=== PATIENT | female | born 1985 | race Caucasian/White ===

== ENCOUNTER 2019-09-12 15:05 | Inpatient (IN) | payer OTHER ==
[2019-09-12] MEDS ORDERED: Sodium Chloride 0.9% 1,000 ML IV ONE ×3 (15:13→21:22)
[2019-09-12] MEDS ORDERED: Sodium Chloride 0.9% 2.5 ML Syringe FLUSH PRN (15:13)
[2019-09-12] MEDS ORDERED: Sodium Chloride 0.9% 10 ML Syringe FLUSH PRN (15:13)
--- NOTE | 2019-09-12 15:25 | EDM.PDOC ---
ED HPI GENERAL MEDICAL PROBLEM - General Chief Complaint: General Stated Complaint: CHEST PAIN Time Seen by Provider: 09/12/19 13:51 - History of Present Illness INITIAL COMMENTS - FREE TEXT/NARRATIVE: History of present illness: 33-year-old female presenting with chest pain and difficulty breathing for the last week, worsening today to the point that she feels she cannot catch her breath. Mild dry cough associated. No fevers. She does report that she has been feeling weak lately and has had very frequent falls including struck her head and had loss of consciousness earlier today. She does have bruising on her arms and legs. I asked the patient specifically about personal safety, if she feels safe at home and if she has been harmed or abused by anyone and she says no. She does report that over the last 2 to 3 months she has lost about 50 to 60 pounds without trying. Does not report any decreased appetite but does report that she just has not felt very well. She does report that recently she has had increased thirst and increased urine output, sometimes drinking 3 gallons of water a day. Review of systems: As per history of present illness and below otherwise all systems reviewed and negative. Past medical history: As per history of present illness and as reviewed below otherwise noncontributory. Had gestational diabetes with 1 of her 2 children Surgical history: As per history of present illness and as reviewed below otherwise noncontributory. Social history: No reported history of drug or alcohol abuse. Tobacco, recently quit. Family history: As per history of present illness and as reviewed below otherwise noncontributory. No known family history of cancer or PE/DVT. No known young cardiac issues either. Physical exam: GEN: no acute distress, well appearing HEENT: Atraumatic, normocephalic, mucous membranes moist Neck: supple, nontender, trachea midline. Lungs: No respiratory distress. Tachypneic Heart: Tachycardic Abdomen: Soft, nondistended, nontender. Back: nontender Extremities: Atraumatic. Neurovascularly intact. Full range of motion of all extremities. Bruises throughout though no bony tenderness. Neuro: Awake, alert, oriented. Neuro Exam nonfocal. Skin: warm, dry, appears pale, somewhat mottled, bruises over extremities. Diagnostics: CT head and neck, CTA chest, CT abdomen/pelvis with contrast Therapeutics: IV fluids MDM: Impression: Plan: Definitive disposition and diagnosis as appropriate pending reevaluation and review of above. Headache Pain Score (Numeric/FACES): 4 - Related Data Allergies Allergy/AdvReac Type Severity Reaction Status Date / Time adhesive Allergy Other Verified 09/12/19 16:31 Home Meds: Home Meds . [No Known Home Meds] 04/15/19 [History] Past Medical History - Past Health History Medical/Surgical History: Denies Medical/Surgical History [employer]IAN History: Reports: , Spontaneous Musculoskeletal History: Reports: RA Endocrine/Metabolic History: Reports: Diabetes, Gestational - Past Surgical History Female Surgical History: Reports: Breast Implant, D&C Social & Family History - Family History Family Medical History: Noncontributory ED ROS GENERAL - Review of Systems Review Of Systems: See Below (See HPI) ED EXAM, GENERAL - Physical Exam Exam: See Below (See HPI) EKG INTERPRETATION EKG Interpretation Comments: Initial EKG which was performed at 3:10 PM was sinus tachycardia with very wavy baseline and significant artifact. Therefore repeat EKG was performed with changed clips. The repeat EKG shows sinus tachycardia, rate 103, left atrial enlargement, left axis deviation borderline inferior T inversions, no STEMI. No QT prolongation. Course - Vital Signs Text/Narrative:: Tachycardic, dyspneic, chest pain. No recent fevers. Significant weight loss. Increased p.o. fluid intake and urine output. No sick contacts. States primarily at home with her children who do not attend school or daycare. Has been having food dropped off at home and has not gone out in public over the last few months. No known past medical history other than gestational diabetes. Not hypoxic on arrival here but tachycardic in the 120s. Several episodes of head injury after falling in the last few days to 1 week. Fingerstick 300. Differential diagnosis includes new onset diabetes with DKA, pulmonary embolism versus dissection, ACS, pneumonia, coronavirus, cancer, leukemia or lymphoma We will check CT head and neck due to the patient's trauma with loss of consciousness. Will check CT angios chest to evaluate for pulmonary embolism versus dissection. Will check CT abdomen/pelvis to evaluate for acute intra- abdominal pathology, mass, infection, etc. EKG sinus tachycardia with slightly prolonged QT interval however poor/wavy baseline and on repeat EKG QT interval is not prolonged. No acute ischemia or STEMI. Troponin negative. Hyperglycemic in the 300s, fasting, with an anion gap of 25 and a pH of 7.09, as well as serum and urine ketones. Concern for new onset diabetes with DKA. Will start insulin drip as well as D5 with potassium supplementation. Patient's potassium is low. Potassium repleted, bicarb also given. CT brain/C-spine with no acute findings. CT angio chest shows no pulmonary embolism or dissection, no pneumonia. CT abdomen/pelvis shows L3 anterior superior vertebral body chip fracture, no other acute intra-abdominal or traumatic pathology. Case was discussed with orthopedics and neurosurgery at [facility] in regards to the need for potential transfer, they recommend no transfer needed at this time this is a nonoperative and stable fracture does not need emergent orthopedic or neurosurgical intervention. Patient will be admitted here. Last Recorded V/S: Last Vital Signs Temp 98.7 F 09/13/19 04:00 Pulse 108 H 09/12/19 19:22 Resp 18 09/13/19 06:00 BP 106/60 09/13/19 06:00 Pulse Ox 97 09/13/19 06:00 - Orders/Labs/Meds Orders: Active Orders 24 hr Category Date Time Status CULTURE BLOOD [BC] Stat Lab 09/12/19 15:41 Received CULTURE BLOOD [BC] Stat Lab 09/12/19 16:34 Results PROCALCITONIN [REF] Stat Lab 09/12/19 15:10 Received Insulin Regular, Human [NovoLIN R] Med 09/12/19 16:30 Active 7 unit SUBCUT ASDIRECTED Sodium Chloride 0.9% [Saline Flush] Med 09/12/19 15:13 Active 10 ml FLUSH ASDIRECTED PRN Sodium Chloride 0.9% [Saline Flush] Med 09/12/19 15:13 Active 2.5 ml FLUSH ASDIRECTED PRN Blood Culture x2 Reflex Set [OM.PC] Stat Oth 09/12/19 15:14 Ordered Saline Lock Insert [OM.PC] Stat Oth 09/12/19 15:14 Ordered Medication Orders Acetaminophen (Tylenol) 650 mg PO Q6H PRN PRN Reason: fever, pain, headache Last Admin: 09/13/19 04:30 Dose: 650 mg Documented by: APOLEVA Famotidine (Pepcid) 20 mg IVPUSH DAILY RALPH Insulin Human Regular 100 unit (/ Sodium Chloride) 100 mls @ 3 mls/hr IV TITRATE RALPH; Protocol Last Titration: 09/13/19 06:10 Dose: 3 unit/hr, 3 mls/hr Documented by: ELIU Cosigned by: MIRANDA Titration: 09/13/19 04:58 Dose: 2 unit/hr, 2 mls/hr Documented by: ELIU Cosigned by: MIRANDA Titration: 09/13/19 03:12 Dose: 2.5 unit/hr, 2.5 mls/hr Documented by: ELIU Cosigned by: MIRANDA Admin: 09/13/19 02:05 Dose: 1.5 unit/hr, 1.5 mls/hr Documented by: ELIU Cosigned by: MIRANDA Potassium Chloride/Dextrose/Sod Cl (D5 1/2 Ns W/ 40 Meq/L Kcl) 1,000 mls @ 150 mls/hr IV ASDIRECTED RALPH Last Admin: 09/13/19 05:01 Dose: 150 mls/hr Documented by: ELIU Insulin Human Regular (Novolin R) 7 unit SUBCUT ASDIRECTED RALPH; Protocol Last Admin: 09/12/19 18:15 Dose: Not Given Documented by: LALA Ondansetron HCl (Zofran) 4 mg IVPUSH Q4H PRN PRN Reason: Nausea Sodium Chloride (Saline Flush) 10 ml FLUSH ASDIRECTED PRN PRN Reason: Keep Vein Open Sodium Chloride (Saline Flush) 2.5 ml FLUSH ASDIRECTED PRN PRN Reason: Keep Vein Open Labs: Laboratory Tests 09/12/19 09/12/19 09/12/19 Range/Units 15:10 15:10 15:10 WBC 9.53 (4.0-11.0) K/uL RBC 5.06 (4.30-5.90) M/uL Hgb 16.7 H (12.0-16.0) g/dL Hct 46.7 H (36.0-46.0) % MCV 92.3 (80.0-98.0) fL MCH 33.0 H (27.0-32.0) pg MCHC 35.8 (31.0-37.0) g/dL RDW Std Deviation 48.2 (28.0-62.0) fl RDW Coeff of Cecilia 15 (11.0-15.0) % Plt Count 215 (150-400) K/uL MPV 10.80 (7.40-12.00) fL Neut % (Auto) 75.7 (48.0-80.0) % Lymph % (Auto) 14.9 L (16.0-40.0) % [place] % (Auto) 8.8 (0.0-15.0) % Eos % (Auto) 0.4 (0.0-7.0) % Baso % (Auto) 0.2 (0.0-1.5) % Neut # (Auto) 7.2 H (1.4-5.7) K/uL Lymph # (Auto) 1.4 (0.6-2.4) K/uL [place] # (Auto) 0.8 (0.0-0.8) K/uL Eos # (Auto) 0.0 (0.0-0.7) K/uL Baso # (Auto) 0.0 (0.0-0.1) K/uL Nucleated RBC % 0.0 /100WBC Nucleated RBCs # 0 K/uL INR ABG pH (7.35-7.45) ABG pCO2 (35-45) mmHG ABG pO2 (75-100) mmHG ABG HCO3 (22-26) mEq/L ABG Total CO2 ABG Base Excess (-2.0-2.0) Sodium 132 L (136-145) mmol/L Potassium 3.1 L (3.5-5.1) mmol/L Chloride 98 (98-107) mmol/L Carbon Dioxide 8.7 L (21.0-32.0) mmol/L BUN 7 (7.0-18.0) mg/dL Creatinine 0.8 (0.6-1.0) mg/dL Est Cr Clr Drug Dosing TNP Estimated GFR (MDRD) > 60.0 ml/min Glucose 315 H (74-106) mg/dL POC Glucose (60-110) mg/dL Calcium 8.5 (8.5-10.1) mg/dL Phosphorus 2.1 L (2.6-4.7) mg/dL Magnesium 2.0 (1.8-2.4) mg/dL Total Bilirubin 0.5 (0.2-1.0) mg/dL AST 15 (15-37) IU/L ALT 26 (14-63) IU/L Alkaline Phosphatase 185 H (46-116) U/L Troponin I < 0.050 (0.000-0.056) ng/mL Total Protein 8.9 H (6.4-8.2) g/dL Albumin 4.2 (3.4-5.0) g/dL Globulin 4.7 H (2.6-4.0) g/dL Albumin/Globulin Ratio 0.9 (0.9-1.6) TSH 3rd Generation 1.25 (0.36-3.74) uIU/mL HCG, Qual NEGATIVE (NEG) Urine Color Urine Appearance Urine pH (5.0-8.0) Ur Specific [place] (1.001-1.035) Urine Protein (NEGATIVE) mg/dL Urine Glucose (UA) (NEGATIVE) mg/dL Urine Ketones (NEGATIVE) mg/dL Urine Occult Blood (NEGATIVE) Urine Nitrite (NEGATIVE) Urine Bilirubin (NEGATIVE) Urine Urobilinogen (<2.0) EU/dL Ur Leukocyte Esterase (NEGATIVE) Urine RBC (0-2/HPF) Urine WBC (0-5/HPF) Ur Epithelial Cells (NONE-FEW) Amorphous Sediment (NEGATIVE) Urine Bacteria (NEGATIVE) Urine Mucus (NONE-MOD) Ketones (NEG) SARS Virus RNA (PCR) (NEGATIVE) 09/12/19 09/12/19 09/12/19 Range/Units 15:10 15:15 15:23 WBC (4.0-11.0) K/uL RBC (4.30-5.90) M/uL Hgb (12.0-16.0) g/dL Hct (36.0-46.0) % MCV (80.0-98.0) fL MCH (27.0-32.0) pg MCHC (31.0-37.0) g/dL RDW Std Deviation (28.0-62.0) fl RDW Coeff of Cecilia (11.0-15.0) % Plt Count (150-400) K/uL MPV (7.40-12.00) fL Neut % (Auto) (48.0-80.0) % Lymph % (Auto) (16.0-40.0) % [place] % (Auto) (0.0-15.0) % Eos % (Auto) (0.0-7.0) % Baso % (Auto) (0.0-1.5) % Neut # (Auto) (1.4-5.7) K/uL Lymph # (Auto) (0.6-2.4) K/uL [place] # (Auto) (0.0-0.8) K/uL Eos # (Auto) (0.0-0.7) K/uL Baso # (Auto) (0.0-0.1) K/uL Nucleated RBC % /100WBC Nucleated RBCs # K/uL INR ABG pH 7.097 L* (7.35-7.45) ABG pCO2 9 L (35-45) mmHG ABG pO2 158 H (75-100) mmHG ABG HCO3 3 L (22-26) mEq/L ABG Total CO2 2.6 ABG Base Excess -24.3 L (-2.0-2.0) Sodium (136-145) mmol/L Potassium (3.5-5.1) mmol/L Chloride (98-107) mmol/L Carbon Dioxide (21.0-32.0) mmol/L BUN (7.0-18.0) mg/dL Creatinine (0.6-1.0) mg/dL Est Cr Clr Drug Dosing Estimated GFR (MDRD) ml/min Glucose (74-106) mg/dL POC Glucose 318 H (60-110) mg/dL Calcium (8.5-10.1) mg/dL Phosphorus (2.6-4.7) mg/dL Magnesium (1.8-2.4) mg/dL Total Bilirubin (0.2-1.0) mg/dL AST (15-37) IU/L ALT (14-63) IU/L Alkaline Phosphatase (46-116) U/L Troponin I (0.000-0.056) ng/mL Total Protein (6.4-8.2) g/dL Albumin (3.4-5.0) g/dL Globulin (2.6-4.0) g/dL Albumin/Globulin Ratio (0.9-1.6) TSH 3rd Generation (0.36-3.74) uIU/mL HCG, Qual (NEG) Urine Color Urine Appearance Urine pH (5.0-8.0) Ur Specific [place] (1.001-1.035) Urine Protein (NEGATIVE) mg/dL Urine Glucose (UA) (NEGATIVE) mg/dL Urine Ketones (NEGATIVE) mg/dL Urine Occult Blood (NEGATIVE) Urine Nitrite (NEGATIVE) Urine Bilirubin (NEGATIVE) Urine Urobilinogen (<2.0) EU/dL Ur Leukocyte Esterase (NEGATIVE) Urine RBC (0-2/HPF) Urine WBC (0-5/HPF) Ur Epithelial Cells (NONE-FEW) Amorphous Sediment (NEGATIVE) Urine Bacteria (NEGATIVE) Urine Mucus (NONE-MOD) Ketones SMALL H (NEG) SARS Virus RNA (PCR) (NEGATIVE) 09/12/19 09/12/19 09/12/19 Range/Units 15:41 15:55 17:44 WBC (4.0-11.0) K/uL RBC (4.30-5.90) M/uL Hgb (12.0-16.0) g/dL Hct (36.0-46.0) % MCV (80.0-98.0) fL MCH (27.0-32.0) pg MCHC (31.0-37.0) g/dL RDW Std Deviation (28.0-62.0) fl RDW Coeff of Cecilia (11.0-15.0) % Plt Count (150-400) K/uL MPV (7.40-12.00) fL Neut % (Auto) (48.0-80.0) % Lymph % (Auto) (16.0-40.0) % [place] % (Auto) (0.0-15.0) % Eos % (Auto) (0.0-7.0) % Baso % (Auto) (0.0-1.5) % Neut # (Auto) (1.4-5.7) K/uL Lymph # (Auto) (0.6-2.4) K/uL [place] # (Auto) (0.0-0.8) K/uL Eos # (Auto) (0.0-0.7) K/uL Baso # (Auto) (0.0-0.1) K/uL Nucleated RBC % /100WBC Nucleated RBCs # K/uL INR 0.97 ABG pH (7.35-7.45) ABG pCO2 (35-45) mmHG ABG pO2 (75-100) mmHG ABG HCO3 (22-26) mEq/L ABG Total CO2 ABG Base Excess (-2.0-2.0) Sodium (136-145) mmol/L Potassium (3.5-5.1) mmol/L Chloride (98-107) mmol/L Carbon Dioxide (21.0-32.0) mmol/L BUN (7.0-18.0) mg/dL Creatinine (0.6-1.0) mg/dL Est Cr Clr Drug Dosing Estimated GFR (MDRD) ml/min Glucose (74-106) mg/dL POC Glucose 219 H (60-110) mg/dL Calcium (8.5-10.1) mg/dL Phosphorus (2.6-4.7) mg/dL Magnesium (1.8-2.4) mg/dL Total Bilirubin (0.2-1.0) mg/dL AST (15-37) IU/L ALT (14-63) IU/L Alkaline Phosphatase (46-116) U/L Troponin I (0.000-0.056) ng/mL Total Protein (6.4-8.2) g/dL Albumin (3.4-5.0) g/dL Globulin (2.6-4.0) g/dL Albumin/Globulin Ratio (0.9-1.6) TSH 3rd Generation (0.36-3.74) uIU/mL HCG, Qual (NEG) Urine Color YELLOW Urine Appearance CLEAR Urine pH 5.5 (5.0-8.0) Ur Specific [place] >= 1.030 (1.001-1.035) Urine Protein 30 H (NEGATIVE) mg/dL Urine Glucose (UA) 500 H (NEGATIVE) mg/dL Urine Ketones >=80 (NEGATIVE) mg/dL Urine Occult Blood SMALL H (NEGATIVE) Urine Nitrite NEGATIVE (NEGATIVE) Urine Bilirubin NEGATIVE (NEGATIVE) Urine Urobilinogen 0.2 (<2.0) EU/dL Ur Leukocyte Esterase NEGATIVE (NEGATIVE) Urine RBC 2-3 (0-2/HPF) Urine WBC 0-1 (0-5/HPF) Ur Epithelial Cells FEW (NONE-FEW) Amorphous Sediment FEW (NEGATIVE) Urine Bacteria FEW (NEGATIVE) Urine Mucus FEW (NONE-MOD) Ketones (NEG) SARS Virus RNA (PCR) (NEGATIVE) 09/12/19 Range/Units 18:05 WBC (4.0-11.0) K/uL RBC (4.30-5.90) M/uL Hgb (12.0-16.0) g/dL Hct (36.0-46.0) % MCV (80.0-98.0) fL MCH (27.0-32.0) pg MCHC (31.0-37.0) g/dL RDW Std Deviation (28.0-62.0) fl RDW Coeff of Cecilia (11.0-15.0) % Plt Count (150-400) K/uL MPV (7.40-12.00) fL Neut % (Auto) (48.0-80.0) % Lymph % (Auto) (16.0-40.0) % [place] % (Auto) (0.0-15.0) % Eos % (Auto) (0.0-7.0) % Baso % (Auto) (0.0-1.5) % Neut # (Auto) (1.4-5.7) K/uL Lymph # (Auto) (0.6-2.4) K/uL [place] # (Auto) (0.0-0.8) K/uL Eos # (Auto) (0.0-0.7) K/uL Baso # (Auto) (0.0-0.1) K/uL Nucleated RBC % /100WBC Nucleated RBCs # K/uL INR ABG pH (7.35-7.45) ABG pCO2 (35-45) mmHG ABG pO2 (75-100) mmHG ABG HCO3 (22-26) mEq/L ABG Total CO2 ABG Base Excess (-2.0-2.0) Sodium (136-145) mmol/L Potassium (3.5-5.1) mmol/L Chloride (98-107) mmol/L Carbon Dioxide (21.0-32.0) mmol/L BUN (7.0-18.0) mg/dL Creatinine (0.6-1.0) mg/dL Est Cr Clr Drug Dosing Estimated GFR (MDRD) ml/min Glucose (74-106) mg/dL POC Glucose (60-110) mg/dL Calcium (8.5-10.1) mg/dL Phosphorus (2.6-4.7) mg/dL Magnesium (1.8-2.4) mg/dL Total Bilirubin (0.2-1.0) mg/dL AST (15-37) IU/L ALT (14-63) IU/L Alkaline Phosphatase (46-116) U/L Troponin I (0.000-0.056) ng/mL Total Protein (6.4-8.2) g/dL Albumin (3.4-5.0) g/dL Globulin (2.6-4.0) g/dL Albumin/Globulin Ratio (0.9-1.6) TSH 3rd Generation (0.36-3.74) uIU/mL HCG, Qual (NEG) Urine Color Urine Appearance Urine pH (5.0-8.0) Ur Specific [place] (1.001-1.035) Urine Protein (NEGATIVE) mg/dL Urine Glucose (UA) (NEGATIVE) mg/dL Urine Ketones (NEGATIVE) mg/dL Urine Occult Blood (NEGATIVE) Urine Nitrite (NEGATIVE) Urine Bilirubin (NEGATIVE) Urine Urobilinogen (<2.0) EU/dL Ur Leukocyte Esterase (NEGATIVE) Urine RBC (0-2/HPF) Urine WBC (0-5/HPF) Ur Epithelial Cells (NONE-FEW) Amorphous Sediment (NEGATIVE) Urine Bacteria (NEGATIVE) Urine Mucus (NONE-MOD) Ketones (NEG) SARS Virus RNA (PCR) NEGATIVE (NEGATIVE) Meds: Medications Generic Name Dose Route Start Last Admin Trade Name Freq PRN Reason Stop Dose Admin Acetaminophen 650 mg 09/13/19 04:19 09/13/19 04:30 Tylenol PO 650 mg Q6H PRN Administration fever, pain, headache Famotidine 20 mg 09/13/19 09:00 Pepcid IVPUSH DAILY RALPH Insulin Human Regular 100 unit 100 mls @ 3 mls/hr 09/13/19 02:00 09/13/19 06:10 / Sodium Chloride IV 3 unit/hr TITRATE RALPH 3 mls/hr Titration Protocol 3 UNIT/HR Potassium Chloride/Dextrose/Sod Cl 1,000 mls @ 150 mls/hr 09/13/19 02:13 09/13/19 05:01 D5 1/2 Ns W/ 40 Meq/L Kcl IV 150 mls/hr ASDIRECTED RALPH Administration Insulin Human Regular 7 unit 09/12/19 16:30 09/12/19 18:15 Novolin R SUBCUT Not Given ASDIRECTED RALPH Protocol Ondansetron HCl 4 mg 09/12/19 22:34 Zofran IVPUSH Q4H PRN Nausea Sodium Chloride 10 ml 09/12/19 15:13 Saline Flush FLUSH ASDIRECTED PRN Keep Vein Open Sodium Chloride 2.5 ml 09/12/19 15:13 Saline Flush FLUSH ASDIRECTED PRN Keep Vein Open Discontinued Medications Generic Name Dose Route Start Last Admin Trade Name Freq PRN Reason Stop Dose Admin Sodium Chloride 1,000 mls @ 999 mls/hr 09/12/19 15:13 09/12/19 15:54 Normal Saline IV 09/12/19 16:13 999 mls/hr .Bolus ONE Administration Insulin Human Regular 100 unit 100 mls @ 7 mls/hr 09/12/19 16:30 09/12/19 21:09 / Sodium Chloride IV 1.5 unit/hr TITRATE RALPH 1.5 mls/hr Titration Protocol 7 UNIT/HR Potassium Chloride 40 meq/ 100 mls @ 25 mls/hr 09/12/19 16:29 09/12/19 16:46 Premix IV 09/12/19 20:28 25 mls/hr ONETIME ONE Administration Sodium Chloride 1,000 mls @ 125 mls/hr 09/12/19 17:00 09/12/19 16:53 Normal Saline IV 125 mls/hr ASDIRECTED RALPH Administration Potassium Chloride/Dextrose/Sod Cl 1,000 mls @ 125 mls/hr 09/12/19 17:30 09/13/19 02:09 D5 1/2 Ns W/ 40 Meq/L Kcl IV 150 mls/hr ASDIRECTED RALPH Infusion Sodium Chloride 1,000 mls @ 999 mls/hr 09/12/19 19:00 09/12/19 19:19 Normal Saline IV 09/12/19 20:00 999 mls/hr .Bolus ONE Administration Sodium Chloride 1,000 mls @ 999 mls/hr 09/12/19 21:22 09/12/19 21:24 Normal Saline IV 09/12/19 22:22 Not Given ONETIME ONE Potassium Chloride/Sodium Chloride 1,000 mls @ 200 mls/hr 09/12/19 22:45 09/13/19 02:09 Normal Saline With 40 Meq Kcl IV 09/13/19 03:44 0 mls/hr ASDIRECTED RALPH Infusion Iopamidol 100 ml 09/12/19 16:45 09/12/19 16:45 Isovue Multipack-370 (76%) IVPUSH 09/12/19 16:46 100 ml ONETIME STA Administration Ondansetron HCl 4 mg 09/12/19 19:07 09/12/19 19:16 Zofran IVPUSH 09/12/19 19:08 4 mg ONETIME ONE Administration Ondansetron HCl Confirm 09/12/19 19:08 09/12/19 19:20 Zofran Administered 09/12/19 19:09 Not Given Dose 4 mg .ROUTE .STK-MED ONE Potassium Chloride 40 meq 09/12/19 22:32 09/12/19 22:43 Klor-Con M20 PO 09/12/19 22:33 40 meq ONETIME ONE Administration Sodium Bicarbonate 5 meq 09/12/19 17:30 09/12/19 17:37 Sodium Bicarbonate 4.2% IVPUSH 09/12/19 17:31 5 meq ONETIME ONE Administration - Re-Assessments/Exams Free Text/Narrative Re-Assessment/Exam: 09/12/19 15:33 On reassessment, the patient is feeling slightly better. Her heart rate is improved from the 120s when she arrived to 103 now. 09/12/19 17:50 18 results discussed with the patient. Her heart rate is now in the 90s. She reports she is feeling much better. Repeat glucose was in the 200s. Discussed negative CT brain/C-spine/chest but CT abdomen/pelvis showing L3 fracture. She does report that she fell about 6 days ago 1 of the times where she felt dizzy and weak and did strike her back and has been having back pain since then. Therefore I suspect the L3 anterior superior vertebral body chip fracture is an acute fracture. Will discuss this with the orthopedic surgeon on-call at [facility] 09/12/19 18:09 Case discussed with orthopedic surgeon, Dr. Anderson at [facility], he reports he does not do spine therefore recommend to speak to neurosurgery. 09/12/19 18:[address] Toro, the neurosurgeon on-call at [facility], L3 fracture was discussed. He recommends no need for transfer at this time or any other surgical intervention or follow-up care. The patient can be admitted here. 09/12/19 18:19 Dr. Erwin called back and agrees with plan and accepts admission. Requests to admit to the ICU, inpatient, telemetry Departure - Departure Time of Disposition: 18:22 Disposition: Admitted As Inpatient 67 Clinical Impression: Ketoacidosis in diabetes mellitus, Diabetes mellitus, new onset DKA (diabetic ketoacidoses) Qualifiers: Diabetes mellitus complication detail: without coma Closed L3 vertebral fracture Qualifiers: Encounter type: initial encounter Fracture morphology: other fracture Qualified Code(s): S32.038A - Other fracture of third lumbar vertebra, initial encounter for closed fracture - Discharge Information Critical Care Note - Critical Care Note Total Time (mins): 35 Comments: managing acute DKA/dyspnea/distress - My Orders Last 24 Hours: My Active Orders 09/12/19 15:10 PROCALCITONIN [REF] Stat 09/12/19 15:13 Sodium Chloride 0.9% [Saline Flush] 10 ml FLUSH ASDIRECTED PRN Sodium Chloride 0.9% [Saline Flush] 2.5 ml FLUSH ASDIRECTED PRN 09/12/19 15:14 Blood Culture x2 Reflex Set [OM.PC] Stat Saline Lock Insert [OM.PC] Stat 09/12/19 15:41 CULTURE BLOOD [BC] Stat 09/12/19 16:30 Insulin Regular, Human [NovoLIN R] 7 unit SUBCUT ASDIRECTED 09/12/19 16:34 CULTURE BLOOD [BC] Stat - Assessment/Plan Last 24 Hours: My Active Orders 09/12/19 15:10 PROCALCITONIN [REF] Stat 09/12/19 15:13 Sodium Chloride 0.9% [Saline Flush] 10 ml FLUSH ASDIRECTED PRN Sodium Chloride 0.9% [Saline Flush] 2.5 ml FLUSH ASDIRECTED PRN 09/12/19 15:14 Blood Culture x2 Reflex Set [OM.PC] Stat Saline Lock Insert [OM.PC] Stat 09/12/19 15:41 CULTURE BLOOD [BC] Stat 09/12/19 16:30 Insulin Regular, Human [NovoLIN R] 7 unit SUBCUT ASDIRECTED 09/12/19 16:34 CULTURE BLOOD [BC] Stat
[2019-09-12 15:52] LABS: BLOOD UREA NITROGEN,BUN 7 mg/dL (7.0-18.0); CARBON DIOXIDE,CO2 8.7 mmol/L (21.0-32.0); CHLORIDE,CL 98 mmol/L (98-107); GLUCOSE RANDOM 315 mg/dL (74-106); POTASSIUM,K 3.1 mmol/L (3.5-5.1); SODIUM,NA 132 mmol/L (136-145)
[2019-09-12] MEDS ORDERED: Potassium Chloride Riders 40 MEQ in Premix Bag 1 BAG IV ONE (16:29)
[2019-09-12] MEDS ORDERED: Insulin Regular, Human 100 Units/ML 10 ML Vial SUBCUT SCH (16:30)
[2019-09-12] MEDS ORDERED: Iopamidol 755 MG/ML 500 ML Multipack Bottle IVPUSH STA (16:45)
[2019-09-12] MEDS ORDERED: Sodium Chloride 0.9% 1,000 ML IV SCH (17:00)
--- NOTE | 2019-09-12 17:01 | CT ---
CT chest Technique: Multiple axial sections through the chest were obtained. Intravenous contrast was utilized. Study performed as a pulmonary angiogram protocol. Findings: Pulmonary arteries are well opacified. No filling defects are seen to indicate pulmonary embolism. No pericardial thickening is seen. Mediastinum and hilar region show no adenopathy. Bilateral breast prosthesis are noted. No axillary adenopathy is seen. Aorta shows no aneurysm or dissection Lung window settings were reviewed. No acute parenchymal change is seen. No pleural effusions are noted. No pneumothorax is appreciated. Bone window settings were reviewed. Old healed 7th right rib fracture is noted. No acute osseous finding is appreciated. Minimal degenerative change is seen within the spine. Impression: 1. No findings of pulmonary embolism. 2. Other findings believed to be nonacute and incidental as described above. Diagnostic code #2 This report was dictated in MDT
--- NOTE | 2019-09-12 17:04 | CT ---
CT cervical spine Technique: Multiple axial sections were obtained from above C1 inferiorly to the bottom of T1. Reconstructed coronal and sagittal images were obtained. Comparison: Prior cervical spine CT exam of 04/22/19 is available. Findings: Vertebral body heights and disc spaces are maintained. Vertebral bodies and posterior arches are intact. No fracture is appreciated. No bony central or bony neural foraminal stenosis is seen. No abnormal subluxation is seen. Impression: 1. Nothing acute is appreciated on CT study of the cervical spine. 2. No significant change from previous CT cervical spine study is seen. Diagnostic code #1 This report was dictated in MDT
--- NOTE | 2019-09-12 17:04 | CT ---
Head CT Technique: Multiple axial sections through the brain were obtained. Intravenous contrast was not utilized. No prior intracranial imaging is available. Findings: Ventricles along with basal cisterns and sulci over the convexities are within normal limits for the patient's age. No abnormal parenchymal densities are seen. No evidence of intracranial hemorrhage. No midline shift or mass-effect is appreciated. Bone window settings were reviewed. Visualized paranasal sinuses show nothing acute. Visualized mastoid sinuses show nothing acute. No acute calvarial finding is seen. Impression: 1. Nothing acute is appreciated on noncontrast head CT study. Diagnostic code #1 This report was dictated in MDT
--- NOTE | 2019-09-12 17:18 | CT ---
CT abdomen and pelvis Technique: Multiple axial sections were obtained from the top of the liver inferiorly through the pubic symphysis. Intravenous contrast was utilized. No oral contrast has been given. Comparison: No prior abdominal imaging is available. Findings: Visualized lung bases show nothing acute. Liver contains no focal parenchymal abnormality. Spleen appears within normal limits. Adrenal glands contain no nodule. Pancreas is within normal limits. Kidneys show symmetric contrast enhancement without hydronephrosis or mass. Gallbladder contains no calcified gallstones. Aorta shows no aneurysm. No retroperitoneal adenopathy or mesenteric abnormalities. Appendix is seen which is normal. No pelvic mass or adenopathy is seen. No free fluid or inflammatory change is appreciated. Bone window settings were reviewed which shows a small chip fracture off the anterior and superior superior L3 vertebral body no additional fracture is appreciated within the visualized osseous structures. Impression: 1. Small chip fracture off the anterior and superior vertebral body of L3. Please correlate if patient is symptomatic to the lumbar spine for this to be acute. 2. No other acute finding is seen on CT study of the abdomen and pelvis. Diagnostic code #3 This report was dictated in MDT
[2019-09-12] MEDS ORDERED: D5 1/2 NS w/ 40 mEq/L KCl 1,000 ML IV SCH (17:30)
[2019-09-12] MEDS ORDERED: Ondansetron 4 MG/2 ML SDV IVPUSH ONE (19:07)
[2019-09-12] MEDS ORDERED: Ondansetron 4 MG/2 ML SDV ONE (19:08)
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
--- NOTE | 2019-09-12 21:25 | PCM.HP.2 ---
H&P History of Present Illness - General Date of Service: 09/12/19 Admit Problem/Dx: Admission Diagnosis/Problem Admission Diagnosis/Problem Diabetic ketoacidosis - History of Present Illness Initial Comments - Free Text/Narative: 33 yo female with pmh of RA, gestational diabetes who presents to the ED with complaints of shortness of breath and chest pains. Patient reports for past several weeks increased thirst and urination. She also lost 60 lbs. She has falling down multiple times and has bruising on her arms and legs. In the ED she was noted to be acidotic on ABG with anion gap of 20, glucose of 318, and bicarb of 8. CT scan of abdomen and pelvis reported small chip fracture of of L3 superior vertebral body. CT of chest was negative for PE. She was started on insulin drip and transferred to ICU. - Related Data Allergies/Adverse Reactions: Allergies Allergy/AdvReac Type Severity Reaction Status Date / Time adhesive Allergy Other Verified 09/12/19 16:31 Home Medications: Home Meds . 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 Musculoskeletal History: Reports: RA Endocrine/Metabolic History: Reports: Diabetes, Gestational - Infectious Disease History Infectious Disease History: Reports: Chicken Pox - Past Surgical History Female Surgical History: Reports: Breast Implant, D&C Social & Family History - Family History Family Medical History: Noncontributory - Tobacco Use Smoking Status *Q: Former Smoker Years of Tobacco use: 2 Packs/Tins Daily: 0.5 Used Tobacco, but Quit: Yes Month/Year Tobacco Last Used: 03/06 Second Hand Smoke Exposure: No - Caffeine Use Caffeine Use: Reports: None - Recreational Drug Use Recreational Drug Use: No H&P Review of Systems - Review of Systems: Review Of Systems: Comprehensive ROS is negative, except as noted in HPI. Exam - Exam Exam: See Below - Vital Signs Vital Signs: Last Vital Signs Temp 36.6 C 09/12/19 16:19 Pulse 108 H 09/12/19 19:22 Resp 18 09/12/19 19:22 BP 120/73 09/12/19 19:22 Pulse Ox 98 09/12/19 19:22 Weight: 73.301 kg - Exam General: Alert, Oriented HEENT: Mucosa Moist & [place] Neck: Supple Lungs: Clear to Auscultation, Normal Respiratory Effort Cardiovascular: Regular Rate, Regular Rhythm GI/Abdominal Exam: Normal Bowel Sounds, Soft, Non-Tender Extremities: Non-Tender, No Pedal Edema Skin: Warm, Dry, Intact Neurological: Cranial Nerves Intact. No: Focal Deficit - Patient Data Lab Results Last 24 hrs: Laboratory Results - last 24 hr 09/12/19 09/12/19 09/12/19 Range/Units 15:10 15:10 15:10 WBC 9.53 (4.0-11.0) K/uL RBC 5.06 (4.30-5.90) M/uL Hgb 16.7 H (12.0-16.0) g/dL Hct 46.7 H (36.0-46.0) % MCV 92.3 (80.0-98.0) fL MCH 33.0 H (27.0-32.0) pg MCHC 35.8 (31.0-37.0) g/dL RDW Std Deviation 48.2 (28.0-62.0) fl RDW Coeff of Cecilia 15 (11.0-15.0) % Plt Count 215 (150-400) K/uL MPV 10.80 (7.40-12.00) fL Neut % (Auto) 75.7 (48.0-80.0) % Lymph % (Auto) 14.9 L (16.0-40.0) % [place] % (Auto) 8.8 (0.0-15.0) % Eos % (Auto) 0.4 (0.0-7.0) % Baso % (Auto) 0.2 (0.0-1.5) % Neut # (Auto) 7.2 H (1.4-5.7) K/uL Lymph # (Auto) 1.4 (0.6-2.4) K/uL [place] # (Auto) 0.8 (0.0-0.8) K/uL Eos # (Auto) 0.0 (0.0-0.7) K/uL Baso # (Auto) 0.0 (0.0-0.1) K/uL Nucleated RBC % 0.0 /100WBC Nucleated RBCs # 0 K/uL INR ABG pH (7.35-7.45) ABG pCO2 (35-45) mmHG ABG pO2 (75-100) mmHG ABG HCO3 (22-26) mEq/L ABG Total CO2 ABG Base Excess (-2.0-2.0) VBG pH (7.31-7.41) VBG pCO2 (35-45) mmHG VBG pO2 (30-40) mmHG VBG HCO3 (22-30) mEq/L VBG Total CO2 (41-51) mmol/L VBG Base Excess (-3.0-3.0) Lactate (0.20-2.00) mmol/L Sodium 132 L (136-145) mmol/L Potassium 3.1 L (3.5-5.1) mmol/L Chloride 98 (98-107) mmol/L Carbon Dioxide 8.7 L (21.0-32.0) mmol/L BUN 7 (7.0-18.0) mg/dL Creatinine 0.8 (0.6-1.0) mg/dL Est Cr Clr Drug Dosing TNP Estimated GFR (MDRD) > 60.0 ml/min Glucose 315 H (74-106) mg/dL POC Glucose (60-110) mg/dL Calcium 8.5 (8.5-10.1) mg/dL Phosphorus 2.1 L (2.6-4.7) mg/dL Magnesium 2.0 (1.8-2.4) mg/dL Total Bilirubin 0.5 (0.2-1.0) mg/dL AST 15 (15-37) IU/L ALT 26 (14-63) IU/L Alkaline Phosphatase 185 H (46-116) U/L Troponin I < 0.050 (0.000-0.056) ng/mL Total Protein 8.9 H (6.4-8.2) g/dL Albumin 4.2 (3.4-5.0) g/dL Globulin 4.7 H (2.6-4.0) g/dL Albumin/Globulin Ratio 0.9 (0.9-1.6) TSH 3rd Generation 1.25 (0.36-3.74) uIU/mL HCG, Qual NEGATIVE (NEG) Urine Color Urine Appearance Urine pH (5.0-8.0) Ur Specific [place] (1.001-1.035) Urine Protein (NEGATIVE) mg/dL Urine Glucose (UA) (NEGATIVE) mg/dL Urine Ketones (NEGATIVE) mg/dL Urine Occult Blood (NEGATIVE) Urine Nitrite (NEGATIVE) Urine Bilirubin (NEGATIVE) Urine Urobilinogen (<2.0) EU/dL Ur Leukocyte Esterase (NEGATIVE) Urine RBC (0-2/HPF) Urine WBC (0-5/HPF) Ur Epithelial Cells (NONE-FEW) Amorphous Sediment (NEGATIVE) Urine Bacteria (NEGATIVE) Urine Mucus (NONE-MOD) Ketones (NEG) SARS Virus RNA (PCR) (NEGATIVE) 09/12/19 09/12/19 09/12/19 Range/Units 15:10 15:15 15:23 WBC (4.0-11.0) K/uL RBC (4.30-5.90) M/uL Hgb (12.0-16.0) g/dL Hct (36.0-46.0) % MCV (80.0-98.0) fL MCH (27.0-32.0) pg MCHC (31.0-37.0) g/dL RDW Std Deviation (28.0-62.0) fl RDW Coeff of Cecilia (11.0-15.0) % Plt Count (150-400) K/uL MPV (7.40-12.00) fL Neut % (Auto) (48.0-80.0) % Lymph % (Auto) (16.0-40.0) % [place] % (Auto) (0.0-15.0) % Eos % (Auto) (0.0-7.0) % Baso % (Auto) (0.0-1.5) % Neut # (Auto) (1.4-5.7) K/uL Lymph # (Auto) (0.6-2.4) K/uL [place] # (Auto) (0.0-0.8) K/uL Eos # (Auto) (0.0-0.7) K/uL Baso # (Auto) (0.0-0.1) K/uL Nucleated RBC % /100WBC Nucleated RBCs # K/uL INR ABG pH 7.097 L* (7.35-7.45) ABG pCO2 9 L (35-45) mmHG ABG pO2 158 H (75-100) mmHG ABG HCO3 3 L (22-26) mEq/L ABG Total CO2 2.6 ABG Base Excess -24.3 L (-2.0-2.0) VBG pH (7.31-7.41) VBG pCO2 (35-45) mmHG VBG pO2 (30-40) mmHG VBG HCO3 (22-30) mEq/L VBG Total CO2 (41-51) mmol/L VBG Base Excess (-3.0-3.0) Lactate (0.20-2.00) mmol/L Sodium (136-145) mmol/L Potassium (3.5-5.1) mmol/L Chloride (98-107) mmol/L Carbon Dioxide (21.0-32.0) mmol/L BUN (7.0-18.0) mg/dL Creatinine (0.6-1.0) mg/dL Est Cr Clr Drug Dosing Estimated GFR (MDRD) ml/min Glucose (74-106) mg/dL POC Glucose 318 H (60-110) mg/dL Calcium (8.5-10.1) mg/dL Phosphorus (2.6-4.7) mg/dL Magnesium (1.8-2.4) mg/dL Total Bilirubin (0.2-1.0) mg/dL AST (15-37) IU/L ALT (14-63) IU/L Alkaline Phosphatase (46-116) U/L Troponin I (0.000-0.056) ng/mL Total Protein (6.4-8.2) g/dL Albumin (3.4-5.0) g/dL Globulin (2.6-4.0) g/dL Albumin/Globulin Ratio (0.9-1.6) TSH 3rd Generation (0.36-3.74) uIU/mL HCG, Qual (NEG) Urine Color Urine Appearance Urine pH (5.0-8.0) Ur Specific [place] (1.001-1.035) Urine Protein (NEGATIVE) mg/dL Urine Glucose (UA) (NEGATIVE) mg/dL Urine Ketones (NEGATIVE) mg/dL Urine Occult Blood (NEGATIVE) Urine Nitrite (NEGATIVE) Urine Bilirubin (NEGATIVE) Urine Urobilinogen (<2.0) EU/dL Ur Leukocyte Esterase (NEGATIVE) Urine RBC (0-2/HPF) Urine WBC (0-5/HPF) Ur Epithelial Cells (NONE-FEW) Amorphous Sediment (NEGATIVE) Urine Bacteria (NEGATIVE) Urine Mucus (NONE-MOD) Ketones SMALL H (NEG) SARS Virus RNA (PCR) (NEGATIVE) 09/12/19 09/12/19 09/12/19 Range/Units 15:41 15:55 17:44 WBC (4.0-11.0) K/uL RBC (4.30-5.90) M/uL Hgb (12.0-16.0) g/dL Hct (36.0-46.0) % MCV (80.0-98.0) fL MCH (27.0-32.0) pg MCHC (31.0-37.0) g/dL RDW Std Deviation (28.0-62.0) fl RDW Coeff of Cecilia (11.0-15.0) % Plt Count (150-400) K/uL MPV (7.40-12.00) fL Neut % (Auto) (48.0-80.0) % Lymph % (Auto) (16.0-40.0) % [place] % (Auto) (0.0-15.0) % Eos % (Auto) (0.0-7.0) % Baso % (Auto) (0.0-1.5) % Neut # (Auto) (1.4-5.7) K/uL Lymph # (Auto) (0.6-2.4) K/uL [place] # (Auto) (0.0-0.8) K/uL Eos # (Auto) (0.0-0.7) K/uL Baso # (Auto) (0.0-0.1) K/uL Nucleated RBC % /100WBC Nucleated RBCs # K/uL INR 0.97 ABG pH (7.35-7.45) ABG pCO2 (35-45) mmHG ABG pO2 (75-100) mmHG ABG HCO3 (22-26) mEq/L ABG Total CO2 ABG Base Excess (-2.0-2.0) VBG pH (7.31-7.41) VBG pCO2 (35-45) mmHG VBG pO2 (30-40) mmHG VBG HCO3 (22-30) mEq/L VBG Total CO2 (41-51) mmol/L VBG Base Excess (-3.0-3.0) Lactate (0.20-2.00) mmol/L Sodium (136-145) mmol/L Potassium (3.5-5.1) mmol/L Chloride (98-107) mmol/L Carbon Dioxide (21.0-32.0) mmol/L BUN (7.0-18.0) mg/dL Creatinine (0.6-1.0) mg/dL Est Cr Clr Drug Dosing Estimated GFR (MDRD) ml/min Glucose (74-106) mg/dL POC Glucose 219 H (60-110) mg/dL Calcium (8.5-10.1) mg/dL Phosphorus (2.6-4.7) mg/dL Magnesium (1.8-2.4) mg/dL Total Bilirubin (0.2-1.0) mg/dL AST (15-37) IU/L ALT (14-63) IU/L Alkaline Phosphatase (46-116) U/L Troponin I (0.000-0.056) ng/mL Total Protein (6.4-8.2) g/dL Albumin (3.4-5.0) g/dL Globulin (2.6-4.0) g/dL Albumin/Globulin Ratio (0.9-1.6) TSH 3rd Generation (0.36-3.74) uIU/mL HCG, Qual (NEG) Urine Color YELLOW Urine Appearance CLEAR Urine pH 5.5 (5.0-8.0) Ur Specific [place] >= 1.030 (1.001-1.035) Urine Protein 30 H (NEGATIVE) mg/dL Urine Glucose (UA) 500 H (NEGATIVE) mg/dL Urine Ketones >=80 (NEGATIVE) mg/dL Urine Occult Blood SMALL H (NEGATIVE) Urine Nitrite NEGATIVE (NEGATIVE) Urine Bilirubin NEGATIVE (NEGATIVE) Urine Urobilinogen 0.2 (<2.0) EU/dL Ur Leukocyte Esterase NEGATIVE (NEGATIVE) Urine RBC 2-3 (0-2/HPF) Urine WBC 0-1 (0-5/HPF) Ur Epithelial Cells FEW (NONE-FEW) Amorphous Sediment FEW (NEGATIVE) Urine Bacteria FEW (NEGATIVE) Urine Mucus FEW (NONE-MOD) Ketones (NEG) SARS Virus RNA (PCR) (NEGATIVE) 09/12/19 09/12/1920 Range/Units 18:05 18:32 18:32 WBC (4.0-11.0) K/uL RBC (4.30-5.90) M/uL Hgb (12.0-16.0) g/dL Hct (36.0-46.0) % MCV (80.0-98.0) fL MCH (27.0-32.0) pg MCHC (31.0-37.0) g/dL RDW Std Deviation (28.0-62.0) fl RDW Coeff of Cecilia (11.0-15.0) % Plt Count (150-400) K/uL MPV (7.40-12.00) fL Neut % (Auto) (48.0-80.0) % Lymph % (Auto) (16.0-40.0) % [place] % (Auto) (0.0-15.0) % Eos % (Auto) (0.0-7.0) % Baso % (Auto) (0.0-1.5) % Neut # (Auto) (1.4-5.7) K/uL Lymph # (Auto) (0.6-2.4) K/uL [place] # (Auto) (0.0-0.8) K/uL Eos # (Auto) (0.0-0.7) K/uL Baso # (Auto) (0.0-0.1) K/uL Nucleated RBC % /100WBC Nucleated RBCs # K/uL INR ABG pH (7.35-7.45) ABG pCO2 (35-45) mmHG ABG pO2 (75-100) mmHG ABG HCO3 (22-26) mEq/L ABG Total CO2 ABG Base Excess (-2.0-2.0) VBG pH 7.07 L (7.31-7.41) VBG pCO2 21 L (35-45) mmHG VBG pO2 46 H (30-40) mmHG VBG HCO3 6 L (22-30) mEq/L VBG Total CO2 6 L (41-51) mmol/L VBG Base Excess -22.4 L (-3.0-3.0) Lactate 1.1 (0.20-2.00) mmol/L Sodium (136-145) mmol/L Potassium (3.5-5.1) mmol/L Chloride (98-107) mmol/L Carbon Dioxide (21.0-32.0) mmol/L BUN (7.0-18.0) mg/dL Creatinine (0.6-1.0) mg/dL Est Cr Clr Drug Dosing Estimated GFR (MDRD) ml/min Glucose (74-106) mg/dL POC Glucose (60-110) mg/dL Calcium (8.5-10.1) mg/dL Phosphorus (2.6-4.7) mg/dL Magnesium (1.8-2.4) mg/dL Total Bilirubin (0.2-1.0) mg/dL AST (15-37) IU/L ALT (14-63) IU/L Alkaline Phosphatase (46-116) U/L Troponin I (0.000-0.056) ng/mL Total Protein (6.4-8.2) g/dL Albumin (3.4-5.0) g/dL Globulin (2.6-4.0) g/dL Albumin/Globulin Ratio (0.9-1.6) TSH 3rd Generation (0.36-3.74) uIU/mL HCG, Qual (NEG) Urine Color Urine Appearance Urine pH (5.0-8.0) Ur Specific [place] (1.001-1.035) Urine Protein (NEGATIVE) mg/dL Urine Glucose (UA) (NEGATIVE) mg/dL Urine Ketones (NEGATIVE) mg/dL Urine Occult Blood (NEGATIVE) Urine Nitrite (NEGATIVE) Urine Bilirubin (NEGATIVE) Urine Urobilinogen (<2.0) EU/dL Ur Leukocyte Esterase (NEGATIVE) Urine RBC (0-2/HPF) Urine WBC (0-5/HPF) Ur Epithelial Cells (NONE-FEW) Amorphous Sediment (NEGATIVE) Urine Bacteria (NEGATIVE) Urine Mucus (NONE-MOD) Ketones (NEG) SARS Virus RNA (PCR) NEGATIVE (NEGATIVE) 09/12/19 09/12/19 09/12/19 Range/Units 18:34 19:11 20:12 WBC (4.0-11.0) K/uL RBC (4.30-5.90) M/uL Hgb (12.0-16.0) g/dL Hct (36.0-46.0) % MCV (80.0-98.0) fL MCH (27.0-32.0) pg MCHC (31.0-37.0) g/dL RDW Std Deviation (28.0-62.0) fl RDW Coeff of Cecilia (11.0-15.0) % Plt Count (150-400) K/uL MPV (7.40-12.00) fL Neut % (Auto) (48.0-80.0) % Lymph % (Auto) (16.0-40.0) % [place] % (Auto) (0.0-15.0) % Eos % (Auto) (0.0-7.0) % Baso % (Auto) (0.0-1.5) % Neut # (Auto) (1.4-5.7) K/uL Lymph # (Auto) (0.6-2.4) K/uL [place] # (Auto) (0.0-0.8) K/uL Eos # (Auto) (0.0-0.7) K/uL Baso # (Auto) (0.0-0.1) K/uL Nucleated RBC % /100WBC Nucleated RBCs # K/uL INR ABG pH (7.35-7.45) ABG pCO2 (35-45) mmHG ABG pO2 (75-100) mmHG ABG HCO3 (22-26) mEq/L ABG Total CO2 ABG Base Excess (-2.0-2.0) VBG pH (7.31-7.41) VBG pCO2 (35-45) mmHG VBG pO2 (30-40) mmHG VBG HCO3 (22-30) mEq/L VBG Total CO2 (41-51) mmol/L VBG Base Excess (-3.0-3.0) Lactate (0.20-2.00) mmol/L Sodium (136-145) mmol/L Potassium (3.5-5.1) mmol/L Chloride (98-107) mmol/L Carbon Dioxide (21.0-32.0) mmol/L BUN (7.0-18.0) mg/dL Creatinine (0.6-1.0) mg/dL Est Cr Clr Drug Dosing Estimated GFR (MDRD) ml/min Glucose (74-106) mg/dL POC Glucose 273 H 267 H 292 H (60-110) mg/dL Calcium (8.5-10.1) mg/dL Phosphorus (2.6-4.7) mg/dL Magnesium (1.8-2.4) mg/dL Total Bilirubin (0.2-1.0) mg/dL AST (15-37) IU/L ALT (14-63) IU/L Alkaline Phosphatase (46-116) U/L Troponin I (0.000-0.056) ng/mL Total Protein (6.4-8.2) g/dL Albumin (3.4-5.0) g/dL Globulin (2.6-4.0) g/dL Albumin/Globulin Ratio (0.9-1.6) TSH 3rd Generation (0.36-3.74) uIU/mL HCG, Qual (NEG) Urine Color Urine Appearance Urine pH (5.0-8.0) Ur Specific [place] (1.001-1.035) Urine Protein (NEGATIVE) mg/dL Urine Glucose (UA) (NEGATIVE) mg/dL Urine Ketones (NEGATIVE) mg/dL Urine Occult Blood (NEGATIVE) Urine Nitrite (NEGATIVE) Urine Bilirubin (NEGATIVE) Urine Urobilinogen (<2.0) EU/dL Ur Leukocyte Esterase (NEGATIVE) Urine RBC (0-2/HPF) Urine WBC (0-5/HPF) Ur Epithelial Cells (NONE-FEW) Amorphous Sediment (NEGATIVE) Urine Bacteria (NEGATIVE) Urine Mucus (NONE-MOD) Ketones (NEG) SARS Virus RNA (PCR) (NEGATIVE) 09/12/19 Range/Units 21:08 WBC (4.0-11.0) K/uL RBC (4.30-5.90) M/uL Hgb (12.0-16.0) g/dL Hct (36.0-46.0) % MCV (80.0-98.0) fL MCH (27.0-32.0) pg MCHC (31.0-37.0) g/dL RDW Std Deviation (28.0-62.0) fl RDW Coeff of Cecilia (11.0-15.0) % Plt Count (150-400) K/uL MPV (7.40-12.00) fL Neut % (Auto) (48.0-80.0) % Lymph % (Auto) (16.0-40.0) % [place] % (Auto) (0.0-15.0) % Eos % (Auto) (0.0-7.0) % Baso % (Auto) (0.0-1.5) % Neut # (Auto) (1.4-5.7) K/uL Lymph # (Auto) (0.6-2.4) K/uL [place] # (Auto) (0.0-0.8) K/uL Eos # (Auto) (0.0-0.7) K/uL Baso # (Auto) (0.0-0.1) K/uL Nucleated RBC % /100WBC Nucleated RBCs # K/uL INR ABG pH (7.35-7.45) ABG pCO2 (35-45) mmHG ABG pO2 (75-100) mmHG ABG HCO3 (22-26) mEq/L ABG Total CO2 ABG Base Excess (-2.0-2.0) VBG pH (7.31-7.41) VBG pCO2 (35-45) mmHG VBG pO2 (30-40) mmHG VBG HCO3 (22-30) mEq/L VBG Total CO2 (41-51) mmol/L VBG Base Excess (-3.0-3.0) Lactate (0.20-2.00) mmol/L Sodium (136-145) mmol/L Potassium (3.5-5.1) mmol/L Chloride (98-107) mmol/L Carbon Dioxide (21.0-32.0) mmol/L BUN (7.0-18.0) mg/dL Creatinine (0.6-1.0) mg/dL Est Cr Clr Drug Dosing Estimated GFR (MDRD) ml/min Glucose (74-106) mg/dL POC Glucose 171 H (60-110) mg/dL Calcium (8.5-10.1) mg/dL Phosphorus (2.6-4.7) mg/dL Magnesium (1.8-2.4) mg/dL Total Bilirubin (0.2-1.0) mg/dL AST (15-37) IU/L ALT (14-63) IU/L Alkaline Phosphatase (46-116) U/L Troponin I (0.000-0.056) ng/mL Total Protein (6.4-8.2) g/dL Albumin (3.4-5.0) g/dL Globulin (2.6-4.0) g/dL Albumin/Globulin Ratio (0.9-1.6) TSH 3rd Generation (0.36-3.74) uIU/mL HCG, Qual (NEG) Urine Color Urine Appearance Urine pH (5.0-8.0) Ur Specific [place] (1.001-1.035) Urine Protein (NEGATIVE) mg/dL Urine Glucose (UA) (NEGATIVE) mg/dL Urine Ketones (NEGATIVE) mg/dL Urine Occult Blood (NEGATIVE) Urine Nitrite (NEGATIVE) Urine Bilirubin (NEGATIVE) Urine Urobilinogen (<2.0) EU/dL Ur Leukocyte Esterase (NEGATIVE) Urine RBC (0-2/HPF) Urine WBC (0-5/HPF) Ur Epithelial Cells (NONE-FEW) Amorphous Sediment (NEGATIVE) Urine Bacteria (NEGATIVE) Urine Mucus (NONE-MOD) Ketones (NEG) SARS Virus RNA (PCR) (NEGATIVE) Result Diagrams: 09/12/19 15:10 09/12/19 21:10 Lauri Results Last 24 hrs: Microbiology 09/12/19 16:34 Anaerobic Blood Culture - Final Blood - Venous - Lab Draw Sepsis Event Note - Evaluation Sepsis Screening Result: No Definite Risk - Focused Exam Vital Signs: Vital Signs Temp Pulse Resp BP Pulse Ox 09/12/19 19:22 108 H 18 120/73 98 09/12/19 18:17 96 18 116/78 96 09/12/19 16:19 36.6 C 98 18 117/78 100 Date Exam was Performed: 09/12/19 Time Exam was Performed: 22:36 Problem List Initiated/Reviewed/Updated: Yes Orders Last 24hrs: Active Orders 24 hr Category Date Time Status Patient Status [ADT] Routine ADT 09/12/19 18:25 Active Accu Check [Blood Glucose Check, Bedside] [RC] ONETIME Care 09/12/19 15:16 Active Antiembolic Devices [RC] PER UNIT ROUTINE Care 09/12/19 20:30 Active Blood Glucose Check, Bedside [RC] Q1HR Care 09/12/19 20:00 Active NPO [Nothing Per Oral Diet] [DIET] Diet 09/13/19 Breakfast Active BASIC METABOLIC PANEL,BMP [CHEM] Q4H Lab 09/12/19 21:10 Received BASIC METABOLIC PANEL,BMP [CHEM] Q4H Lab 09/13/19 00:57 Ordered BASIC METABOLIC PANEL,BMP [CHEM] Q4H Lab 09/13/19 04:57 Ordered BASIC METABOLIC PANEL,BMP [CHEM] Q4H Lab 09/13/19 08:57 Ordered BASIC METABOLIC PANEL,BMP [CHEM] Q4H Lab 09/13/19 12:57 Ordered BASIC METABOLIC PANEL,BMP [CHEM] Q4H Lab 09/13/19 16:57 Ordered CULTURE BLOOD [BC] Stat Lab 09/12/19 15:41 Received CULTURE BLOOD [BC] Stat Lab 09/12/19 16:34 Results PROCALCITONIN [REF] Stat Lab 09/12/19 15:10 Received D5 1/2 NS w/ 40 mEq/L KCl 1,000 ml Med 09/12/19 17:30 Active IV ASDIRECTED Famotidine [Pepcid] Med 09/13/19 09:00 Active 20 mg IVPUSH DAILY Insulin Regular, Human [NovoLIN R] Med 09/12/19 16:30 Active 7 unit SUBCUT ASDIRECTED Insulin Regular, Human [NovoLIN R] 100 unit Med 09/12/19 16:30 Active Sodium Chloride 0.9% [Normal Saline] 99 ml IV TITRATE Sodium Chloride 0.9% [Saline Flush] Med 09/12/19 15:13 Active 10 ml FLUSH ASDIRECTED PRN Sodium Chloride 0.9% [Saline Flush] Med 09/12/19 15:13 Active 2.5 ml FLUSH ASDIRECTED PRN Blood Culture x2 Reflex Set [OM.PC] Stat Oth 09/12/19 15:14 Ordered SCD [Sequential Compression Device] [OM.PC] Routine Oth 09/12/19 20:30 Ordered Saline Lock Insert [OM.PC] Stat Oth 09/12/19 15:14 Ordered Medication Orders Famotidine (Pepcid) 20 mg IVPUSH DAILY RALPH Insulin Human Regular 100 unit (/ Sodium Chloride) 100 mls @ 7 mls/hr IV TITRATE RALPH; Protocol Last Titration: 09/12/19 21:09 Dose: 1.5 unit/hr, 1.5 mls/hr Documented by: ELIU Cosigned by: PASTGEN Titration: 09/12/19 18:35 Dose: 3 unit/hr, 3 mls/hr Documented by: [email or web address] Cosigned by: DANIELA Admin: 09/12/19 17:50 Dose: 7 unit/hr, 7 mls/hr Documented by: LALA Cosigned by: DANIELA Potassium Chloride/Dextrose/Sod Cl (D5 1/2 Ns W/ 40 Meq/L Kcl) 1,000 mls @ 125 mls/hr IV ASDIRECTED RALPH Last Admin: 09/12/19 17:35 Dose: 125 mls/hr Documented by: LALA Insulin Human Regular (Novolin R) 7 unit SUBCUT ASDIRECTED [facility]; Protocol Last Admin: 09/12/19 18:15 Dose: Not Given Documented by: LALA Sodium Chloride (Saline Flush) 10 ml FLUSH ASDIRECTED PRN PRN Reason: Keep Vein Open Sodium Chloride (Saline Flush) 2.5 ml FLUSH ASDIRECTED PRN PRN Reason: Keep Vein Open Assessment/Plan Comment:: 33 yo female admitted for DKA DKA: hold insulin drip until hypokalemia corrected, will continue IV fluids and trend BMP. family living educator consulted.
[2019-09-12 21:39] LABS: BLOOD UREA NITROGEN,BUN 5 mg/dL (7.0-18.0); CARBON DIOXIDE,CO2 7.1 mmol/L (21.0-32.0); CHLORIDE,CL 104 mmol/L (98-107); GLUCOSE RANDOM 192 mg/dL (74-106); POTASSIUM,K 2.8 mmol/L (3.5-5.1); SODIUM,NA 138 mmol/L (136-145)
[2019-09-12] MEDS ORDERED: Potassium Chloride 20 MEQ Tab.ER PO ONE (22:32)
[2019-09-12] MEDS ORDERED: Sodium Chloride 0.9% with KCl 1,000 ML IV SCH (22:45)
[2019-09-13 01:26] LABS: BLOOD UREA NITROGEN,BUN 5 mg/dL (7.0-18.0); CARBON DIOXIDE,CO2 8.3 mmol/L (21.0-32.0); CHLORIDE,CL 105 mmol/L (98-107); GLUCOSE RANDOM 187 mg/dL (74-106); POTASSIUM,K 3.3 mmol/L (3.5-5.1); SODIUM,NA 137 mmol/L (136-145)
[2019-09-13] MEDS: Acetaminophen 325 MG Tab PO PRN ×4 (04:30→22:48)
[2019-09-13] MEDS: D5 1/2 NS w/ 40 mEq/L KCl 1,000 ML IV SCH ×2 (05:01→10:38)
[2019-09-13 05:25] LABS: HEMOGLOBIN A1C 11.3 % (4.5-6.2)
[2019-09-13 05:27] LABS: BLOOD UREA NITROGEN,BUN 4 mg/dL (7.0-18.0); CARBON DIOXIDE,CO2 10.4 mmol/L (21.0-32.0); CHLORIDE,CL 104 mmol/L (98-107); GLUCOSE RANDOM 236 mg/dL (74-106); POTASSIUM,K 3.3 mmol/L (3.5-5.1); SODIUM,NA 135 mmol/L (136-145)
[2019-09-13] MEDS: Famotidine 20 MG/2 ML SDV IVPUSH SCH (08:19)
[2019-09-13] MEDS: Ondansetron 4 MG/2 ML SDV IVPUSH PRN (08:20)
[2019-09-13] MEDS ORDERED: Potassium Chloride 20 MEQ Tab.ER PO ONE ×4 (08:28→21:53)
--- NOTE | 2019-09-13 09:25 | PN ---
THC Physician - Brief Progress [id number]/21/2020 09:15[facility] Norma Linares, CHLEE - KENDRA (ESTELA) - KENDRA THOMASWILLY MAYERSCollinDate of Service 09/13/2019 09:15HPI/Events of Note EICU progress noteAdvised:Would check Mag/ PhosVitamin DWould give age appropriate immunizations Replete electrolytesConsider TSH check if not already completedOrdered:Deferred to bedside team.Have reviewed in the chart:LabsH & PEICU admission notePatient on cameraPatient: VSS sitting up chatting i n bed with RN.Suggest:Age appropriate immunizations, especially now with DM2 uncontrolled and RADiabe tic/ nutrition counceller.Yearly influenza vaccinationsTdap update.Agressive monitoring and replacing electrolytesCheck Vitamin D levels.Will likely need outpatient check of electrolytes as wellThank yo u for involving the EICU in the care of this patient.Will continue to follow along and monitor closel y with excellent bedside team.Interventions Minor-Clinical assessment - ordering diagnostic tests, Co mmunication with other healthcare providers and/or family, Routine modifications to care plan (e.g. P RN medications for pain, fever)Electronically Signed by: KELLIE GONZALEZ () on 0 09:24
[2019-09-13] MEDS ORDERED: Potassium Phosphates 30 MMOLE in Sodium Chloride 0.9% 500 ML IV ONE (09:59)
[2019-09-13] MEDS ORDERED: Potassium Chloride 10% 20 MEQ/15 ML Soln 15 ML UD Cup PO ONE (10:03)
[2019-09-13 10:11] LABS: BLOOD UREA NITROGEN,BUN 3 mg/dL (7.0-18.0); CARBON DIOXIDE,CO2 11.9 mmol/L (21.0-32.0); CHLORIDE,CL 104 mmol/L (98-107); GLUCOSE RANDOM 253 mg/dL (74-106); SODIUM,NA 133 mmol/L (136-145)
--- NOTE | 2019-09-13 10:13 | PCM.PN ---
- General Info Date of Service: 09/13/19 - Review of Systems Systems Review Comment:: feeling better, shortness of breath and chest pain resolved - Patient Data Vitals - Most Recent: Last Vital Signs Temp 36.6 C 09/13/19 08:00 Pulse 108 H 09/12/19 19:22 Resp 15 09/13/19 09:00 BP 99/60 09/13/19 09:00 Pulse Ox 98 09/13/19 09:00 Weight - Most Recent: 73.301 kg I&O - Last 24 Hours: Intake & Output 09/12/19 09/13/19 09/13/19 22:59 06:59 14:59 Intake Total 999 971 Output Total 2050 900 Balance 999 -6477 -900 Lab Results Last 24 Hours: Laboratory Results - last 24 hr 09/12/19 09/12/19 09/12/19 Range/Units 15:10 15:10 15:10 WBC 9.53 (4.0-11.0) K/uL RBC 5.06 (4.30-5.90) M/uL Hgb 16.7 H (12.0-16.0) g/dL Hct 46.7 H (36.0-46.0) % MCV 92.3 (80.0-98.0) fL MCH 33.0 H (27.0-32.0) pg MCHC 35.8 (31.0-37.0) g/dL RDW Std Deviation 48.2 (28.0-62.0) fl RDW Coeff of Cecilia 15 (11.0-15.0) % Plt Count 215 (150-400) K/uL MPV 10.80 (7.40-12.00) fL Neut % (Auto) 75.7 (48.0-80.0) % Lymph % (Auto) 14.9 L (16.0-40.0) % [place] % (Auto) 8.8 (0.0-15.0) % Eos % (Auto) 0.4 (0.0-7.0) % Baso % (Auto) 0.2 (0.0-1.5) % Neut # (Auto) 7.2 H (1.4-5.7) K/uL Lymph # (Auto) 1.4 (0.6-2.4) K/uL [place] # (Auto) 0.8 (0.0-0.8) K/uL Eos # (Auto) 0.0 (0.0-0.7) K/uL Baso # (Auto) 0.0 (0.0-0.1) K/uL Nucleated RBC % 0.0 /100WBC Nucleated RBCs # 0 K/uL INR ABG pH (7.35-7.45) ABG pCO2 (35-45) mmHG ABG pO2 (75-100) mmHG ABG HCO3 (22-26) mEq/L ABG Total CO2 ABG Base Excess (-2.0-2.0) VBG pH (7.31-7.41) VBG pCO2 (35-45) mmHG VBG pO2 (30-40) mmHG VBG HCO3 (22-30) mEq/L VBG Total CO2 (41-51) mmol/L VBG Base Excess (-3.0-3.0) Lactate (0.20-2.00) mmol/L Sodium 132 L (136-145) mmol/L Potassium 3.1 L (3.5-5.1) mmol/L Chloride 98 (98-107) mmol/L Carbon Dioxide 8.7 L (21.0-32.0) mmol/L BUN 7 (7.0-18.0) mg/dL Creatinine 0.8 (0.6-1.0) mg/dL Est Cr Clr Drug Dosing TNP Estimated GFR (MDRD) > 60.0 ml/min Glucose 315 H (74-106) mg/dL POC Glucose (60-110) mg/dL Hemoglobin A1c (4.5-6.2) % Calcium 8.5 (8.5-10.1) mg/dL Phosphorus 2.1 L (2.6-4.7) mg/dL Magnesium 2.0 (1.8-2.4) mg/dL Total Bilirubin 0.5 (0.2-1.0) mg/dL AST 15 (15-37) IU/L ALT 26 (14-63) IU/L Alkaline Phosphatase 185 H (46-116) U/L Troponin I < 0.050 (0.000-0.056) ng/mL Total Protein 8.9 H (6.4-8.2) g/dL Albumin 4.2 (3.4-5.0) g/dL Globulin 4.7 H (2.6-4.0) g/dL Albumin/Globulin Ratio 0.9 (0.9-1.6) TSH 3rd Generation 1.25 (0.36-3.74) uIU/mL HCG, Qual NEGATIVE (NEG) Urine Color Urine Appearance Urine pH (5.0-8.0) Ur Specific [place] (1.001-1.035) Urine Protein (NEGATIVE) mg/dL Urine Glucose (UA) (NEGATIVE) mg/dL Urine Ketones (NEGATIVE) mg/dL Urine Occult Blood (NEGATIVE) Urine Nitrite (NEGATIVE) Urine Bilirubin (NEGATIVE) Urine Urobilinogen (<2.0) EU/dL Ur Leukocyte Esterase (NEGATIVE) Urine RBC (0-2/HPF) Urine WBC (0-5/HPF) Ur Epithelial Cells (NONE-FEW) Amorphous Sediment (NEGATIVE) Urine Bacteria (NEGATIVE) Urine Mucus (NONE-MOD) Ketones (NEG) SARS Virus RNA (PCR) (NEGATIVE) 09/12/19 09/12/19 09/12/19 Range/Units 15:10 15:15 15:23 WBC (4.0-11.0) K/uL RBC (4.30-5.90) M/uL Hgb (12.0-16.0) g/dL Hct (36.0-46.0) % MCV (80.0-98.0) fL MCH (27.0-32.0) pg MCHC (31.0-37.0) g/dL RDW Std Deviation (28.0-62.0) fl RDW Coeff of Cecilia (11.0-15.0) % Plt Count (150-400) K/uL MPV (7.40-12.00) fL Neut % (Auto) (48.0-80.0) % Lymph % (Auto) (16.0-40.0) % [place] % (Auto) (0.0-15.0) % Eos % (Auto) (0.0-7.0) % Baso % (Auto) (0.0-1.5) % Neut # (Auto) (1.4-5.7) K/uL Lymph # (Auto) (0.6-2.4) K/uL [place] # (Auto) (0.0-0.8) K/uL Eos # (Auto) (0.0-0.7) K/uL Baso # (Auto) (0.0-0.1) K/uL Nucleated RBC % /100WBC Nucleated RBCs # K/uL INR ABG pH 7.097 L* (7.35-7.45) ABG pCO2 9 L (35-45) mmHG ABG pO2 158 H (75-100) mmHG ABG HCO3 3 L (22-26) mEq/L ABG Total CO2 2.6 ABG Base Excess -24.3 L (-2.0-2.0) VBG pH (7.31-7.41) VBG pCO2 (35-45) mmHG VBG pO2 (30-40) mmHG VBG HCO3 (22-30) mEq/L VBG Total CO2 (41-51) mmol/L VBG Base Excess (-3.0-3.0) Lactate (0.20-2.00) mmol/L Sodium (136-145) mmol/L Potassium (3.5-5.1) mmol/L Chloride (98-107) mmol/L Carbon Dioxide (21.0-32.0) mmol/L BUN (7.0-18.0) mg/dL Creatinine (0.6-1.0) mg/dL Est Cr Clr Drug Dosing Estimated GFR (MDRD) ml/min Glucose (74-106) mg/dL POC Glucose 318 H (60-110) mg/dL Hemoglobin A1c (4.5-6.2) % Calcium (8.5-10.1) mg/dL Phosphorus (2.6-4.7) mg/dL Magnesium (1.8-2.4) mg/dL Total Bilirubin (0.2-1.0) mg/dL AST (15-37) IU/L ALT (14-63) IU/L Alkaline Phosphatase (46-116) U/L Troponin I (0.000-0.056) ng/mL Total Protein (6.4-8.2) g/dL Albumin (3.4-5.0) g/dL Globulin (2.6-4.0) g/dL Albumin/Globulin Ratio (0.9-1.6) TSH 3rd Generation (0.36-3.74) uIU/mL HCG, Qual (NEG) Urine Color Urine Appearance Urine pH (5.0-8.0) Ur Specific [place] (1.001-1.035) Urine Protein (NEGATIVE) mg/dL Urine Glucose (UA) (NEGATIVE) mg/dL Urine Ketones (NEGATIVE) mg/dL Urine Occult Blood (NEGATIVE) Urine Nitrite (NEGATIVE) Urine Bilirubin (NEGATIVE) Urine Urobilinogen (<2.0) EU/dL Ur Leukocyte Esterase (NEGATIVE) Urine RBC (0-2/HPF) Urine WBC (0-5/HPF) Ur Epithelial Cells (NONE-FEW) Amorphous Sediment (NEGATIVE) Urine Bacteria (NEGATIVE) Urine Mucus (NONE-MOD) Ketones SMALL H (NEG) SARS Virus RNA (PCR) (NEGATIVE) 09/12/19 09/12/19 09/12/19 Range/Units 15:41 15:55 17:44 WBC (4.0-11.0) K/uL RBC (4.30-5.90) M/uL Hgb (12.0-16.0) g/dL Hct (36.0-46.0) % MCV (80.0-98.0) fL MCH (27.0-32.0) pg MCHC (31.0-37.0) g/dL RDW Std Deviation (28.0-62.0) fl RDW Coeff of Cecilia (11.0-15.0) % Plt Count (150-400) K/uL MPV (7.40-12.00) fL Neut % (Auto) (48.0-80.0) % Lymph % (Auto) (16.0-40.0) % [place] % (Auto) (0.0-15.0) % Eos % (Auto) (0.0-7.0) % Baso % (Auto) (0.0-1.5) % Neut # (Auto) (1.4-5.7) K/uL Lymph # (Auto) (0.6-2.4) K/uL [place] # (Auto) (0.0-0.8) K/uL Eos # (Auto) (0.0-0.7) K/uL Baso # (Auto) (0.0-0.1) K/uL Nucleated RBC % /100WBC Nucleated RBCs # K/uL INR 0.97 ABG pH (7.35-7.45) ABG pCO2 (35-45) mmHG ABG pO2 (75-100) mmHG ABG HCO3 (22-26) mEq/L ABG Total CO2 ABG Base Excess (-2.0-2.0) VBG pH (7.31-7.41) VBG pCO2 (35-45) mmHG VBG pO2 (30-40) mmHG VBG HCO3 (22-30) mEq/L VBG Total CO2 (41-51) mmol/L VBG Base Excess (-3.0-3.0) Lactate (0.20-2.00) mmol/L Sodium (136-145) mmol/L Potassium (3.5-5.1) mmol/L Chloride (98-107) mmol/L Carbon Dioxide (21.0-32.0) mmol/L BUN (7.0-18.0) mg/dL Creatinine (0.6-1.0) mg/dL Est Cr Clr Drug Dosing Estimated GFR (MDRD) ml/min Glucose (74-106) mg/dL POC Glucose 219 H (60-110) mg/dL Hemoglobin A1c (4.5-6.2) % Calcium (8.5-10.1) mg/dL Phosphorus (2.6-4.7) mg/dL Magnesium (1.8-2.4) mg/dL Total Bilirubin (0.2-1.0) mg/dL AST (15-37) IU/L ALT (14-63) IU/L Alkaline Phosphatase (46-116) U/L Troponin I (0.000-0.056) ng/mL Total Protein (6.4-8.2) g/dL Albumin (3.4-5.0) g/dL Globulin (2.6-4.0) g/dL Albumin/Globulin Ratio (0.9-1.6) TSH 3rd Generation (0.36-3.74) uIU/mL HCG, Qual (NEG) Urine Color YELLOW Urine Appearance CLEAR Urine pH 5.5 (5.0-8.0) Ur Specific [place] >= 1.030 (1.001-1.035) Urine Protein 30 H (NEGATIVE) mg/dL Urine Glucose (UA) 500 H (NEGATIVE) mg/dL Urine Ketones >=80 (NEGATIVE) mg/dL Urine Occult Blood SMALL H (NEGATIVE) Urine Nitrite NEGATIVE (NEGATIVE) Urine Bilirubin NEGATIVE (NEGATIVE) Urine Urobilinogen 0.2 (<2.0) EU/dL Ur Leukocyte Esterase NEGATIVE (NEGATIVE) Urine RBC 2-3 (0-2/HPF) Urine WBC 0-1 (0-5/HPF) Ur Epithelial Cells FEW (NONE-FEW) Amorphous Sediment FEW (NEGATIVE) Urine Bacteria FEW (NEGATIVE) Urine Mucus FEW (NONE-MOD) Ketones (NEG) SARS Virus RNA (PCR) (NEGATIVE) 09/12/19 09/12/19 09/12/19 Range/Units 18:05 18:32 18:32 WBC (4.0-11.0) K/uL RBC (4.30-5.90) M/uL Hgb (12.0-16.0) g/dL Hct (36.0-46.0) % MCV (80.0-98.0) fL MCH (27.0-32.0) pg MCHC (31.0-37.0) g/dL RDW Std Deviation (28.0-62.0) fl RDW Coeff of [place]cc[place] (11.0-15.0) % Plt Count (150-400) K/uL MPV (7.40-12.00) fL Neut % (Auto) (48.0-80.0) % Lymph % (Auto) (16.0-40.0) % [place] % (Auto) (0.0-15.0) % Eos % (Auto) (0.0-7.0) % Baso % (Auto) (0.0-1.5) % Neut # (Auto) (1.4-5.7) K/uL Lymph # (Auto) (0.6-2.4) K/uL [place] # (Auto) (0.0-0.8) K/uL Eos # (Auto) (0.0-0.7) K/uL Baso # (Auto) (0.0-0.1) K/uL Nucleated RBC % /100WBC Nucleated RBCs # K/uL INR ABG pH (7.35-7.45) ABG pCO2 (35-45) mmHG ABG pO2 (75-100) mmHG ABG HCO3 (22-26) mEq/L ABG Total CO2 ABG Base Excess (-2.0-2.0) VBG pH 7.07 L (7.31-7.41) VBG pCO2 21 L (35-45) mmHG VBG pO2 46 H (30-40) mmHG VBG HCO3 6 L (22-30) mEq/L VBG Total CO2 6 L (41-51) mmol/L VBG Base Excess -22.4 L (-3.0-3.0) Lactate 1.1 (0.20-2.00) mmol/L Sodium (136-145) mmol/L Potassium (3.5-5.1) mmol/L Chloride (98-107) mmol/L Carbon Dioxide (21.0-32.0) mmol/L BUN (7.0-18.0) mg/dL Creatinine (0.6-1.0) mg/dL Est Cr Clr Drug Dosing Estimated GFR (MDRD) ml/min Glucose (74-106) mg/dL POC Glucose (60-110) mg/dL Hemoglobin A1c (4.5-6.2) % Calcium (8.5-10.1) mg/dL Phosphorus (2.6-4.7) mg/dL Magnesium (1.8-2.4) mg/dL Total Bilirubin (0.2-1.0) mg/dL AST (15-37) IU/L ALT (14-63) IU/L Alkaline Phosphatase (46-116) U/L Troponin I (0.000-0.056) ng/mL Total Protein (6.4-8.2) g/dL Albumin (3.4-5.0) g/dL Globulin (2.6-4.0) g/dL Albumin/Globulin Ratio (0.9-1.6) TSH 3rd Generation (0.36-3.74) uIU/mL HCG, Qual (NEG) Urine Color Urine Appearance Urine pH (5.0-8.0) Ur Specific [place] (1.001-1.035) Urine Protein (NEGATIVE) mg/dL Urine Glucose (UA) (NEGATIVE) mg/dL Urine Ketones (NEGATIVE) mg/dL Urine Occult Blood (NEGATIVE) Urine Nitrite (NEGATIVE) Urine Bilirubin (NEGATIVE) Urine Urobilinogen (<2.0) EU/dL Ur Leukocyte Esterase (NEGATIVE) Urine RBC (0-2/HPF) Urine WBC (0-5/HPF) Ur Epithelial Cells (NONE-FEW) Amorphous Sediment (NEGATIVE) Urine Bacteria (NEGATIVE) Urine Mucus (NONE-MOD) Ketones (NEG) SARS Virus RNA (PCR) NEGATIVE (NEGATIVE) 09/12/19 09/12/19 09/12/19 Range/Units 18:34 19:11 20:12 WBC (4.0-11.0) K/uL RBC (4.30-5.90) M/uL Hgb (12.0-16.0) g/dL Hct (36.0-46.0) % MCV (80.0-98.0) fL MCH (27.0-32.0) pg MCHC (31.0-37.0) g/dL RDW Std Deviation (28.0-62.0) fl RDW Coeff of Cecilia (11.0-15.0) % Plt Count (150-400) K/uL MPV (7.40-12.00) fL Neut % (Auto) (48.0-80.0) % Lymph % (Auto) (16.0-40.0) % [place] % (Auto) (0.0-15.0) % Eos % (Auto) (0.0-7.0) % Baso % (Auto) (0.0-1.5) % Neut # (Auto) (1.4-5.7) K/uL Lymph # (Auto) (0.6-2.4) K/uL [place] # (Auto) (0.0-0.8) K/uL Eos # (Auto) (0.0-0.7) K/uL Baso # (Auto) (0.0-0.1) K/uL Nucleated RBC % /100WBC Nucleated RBCs # K/uL INR ABG pH (7.35-7.45) ABG pCO2 (35-45) mmHG ABG pO2 (75-100) mmHG ABG HCO3 (22-26) mEq/L ABG Total CO2 ABG Base Excess (-2.0-2.0) VBG pH (7.31-7.41) VBG pCO2 (35-45) mmHG VBG pO2 (30-40) mmHG VBG HCO3 (22-30) mEq/L VBG Total CO2 (41-51) mmol/L VBG Base Excess (-3.0-3.0) Lactate (0.20-2.00) mmol/L Sodium (136-145) mmol/L Potassium (3.5-5.1) mmol/L Chloride (98-107) mmol/L Carbon Dioxide (21.0-32.0) mmol/L BUN (7.0-18.0) mg/dL Creatinine (0.6-1.0) mg/dL Est Cr Clr Drug Dosing Estimated GFR (MDRD) ml/min Glucose (74-106) mg/dL POC Glucose 273 H 267 H 292 H (60-110) mg/dL Hemoglobin A1c (4.5-6.2) % Calcium (8.5-10.1) mg/dL Phosphorus (2.6-4.7) mg/dL Magnesium (1.8-2.4) mg/dL Total Bilirubin (0.2-1.0) mg/dL AST (15-37) IU/L ALT (14-63) IU/L Alkaline Phosphatase (46-116) U/L Troponin I (0.000-0.056) ng/mL Total Protein (6.4-8.2) g/dL Albumin (3.4-5.0) g/dL Globulin (2.6-4.0) g/dL Albumin/Globulin Ratio (0.9-1.6) TSH 3rd Generation (0.36-3.74) uIU/mL HCG, Qual (NEG) Urine Color Urine Appearance Urine pH (5.0-8.0) Ur Specific [place] (1.001-1.035) Urine Protein (NEGATIVE) mg/dL Urine Glucose (UA) (NEGATIVE) mg/dL Urine Ketones (NEGATIVE) mg/dL Urine Occult Blood (NEGATIVE) Urine Nitrite (NEGATIVE) Urine Bilirubin (NEGATIVE) Urine Urobilinogen (<2.0) EU/dL Ur Leukocyte Esterase (NEGATIVE) Urine RBC (0-2/HPF) Urine WBC (0-5/HPF) Ur Epithelial Cells (NONE-FEW) Amorphous Sediment (NEGATIVE) Urine Bacteria (NEGATIVE) Urine Mucus (NONE-MOD) Ketones (NEG) SARS Virus RNA (PCR) (NEGATIVE) 09/12/19 09/12/19 09/12/19 Range/Units 21:08 21:10 22:04 WBC (4.0-11.0) K/uL RBC (4.30-5.90) M/uL Hgb (12.0-16.0) g/dL Hct (36.0-46.0) % MCV (80.0-98.0) fL MCH (27.0-32.0) pg MCHC (31.0-37.0) g/dL RDW Std Deviation (28.0-62.0) fl RDW Coeff of Cecilia (11.0-15.0) % Plt Count (150-400) K/uL MPV (7.40-12.00) fL Neut % (Auto) (48.0-80.0) % Lymph % (Auto) (16.0-40.0) % [place] % (Auto) (0.0-15.0) % Eos % (Auto) (0.0-7.0) % Baso % (Auto) (0.0-1.5) % Neut # (Auto) (1.4-5.7) K/uL Lymph # (Auto) (0.6-2.4) K/uL [place] # (Auto) (0.0-0.8) K/uL Eos # (Auto) (0.0-0.7) K/uL Baso # (Auto) (0.0-0.1) K/uL Nucleated RBC % /100WBC Nucleated RBCs # K/uL INR ABG pH (7.35-7.45) ABG pCO2 (35-45) mmHG ABG pO2 (75-100) mmHG ABG HCO3 (22-26) mEq/L ABG Total CO2 ABG Base Excess (-2.0-2.0) VBG pH (7.31-7.41) VBG pCO2 (35-45) mmHG VBG pO2 (30-40) mmHG VBG HCO3 (22-30) mEq/L VBG Total CO2 (41-51) mmol/L VBG Base Excess (-3.0-3.0) Lactate (0.20-2.00) mmol/L Sodium 138 (136-145) mmol/L Potassium 2.8 L (3.5-5.1) mmol/L Chloride 104 (98-107) mmol/L Carbon Dioxide 7.1 L (21.0-32.0) mmol/L BUN 5 L (7.0-18.0) mg/dL Creatinine 0.5 L (0.6-1.0) mg/dL Est Cr Clr Drug Dosing 139.49 Estimated GFR (MDRD) > 60.0 ml/min Glucose 192 H (74-106) mg/dL POC Glucose 171 H 173 H (60-110) mg/dL Hemoglobin A1c (4.5-6.2) % Calcium 7.6 L (8.5-10.1) mg/dL Phosphorus (2.6-4.7) mg/dL Magnesium (1.8-2.4) mg/dL Total Bilirubin (0.2-1.0) mg/dL AST (15-37) IU/L ALT (14-63) IU/L Alkaline Phosphatase (46-116) U/L Troponin I (0.000-0.056) ng/mL Total Protein (6.4-8.2) g/dL Albumin (3.4-5.0) g/dL Globulin (2.6-4.0) g/dL Albumin/Globulin Ratio (0.9-1.6) TSH 3rd Generation (0.36-3.74) uIU/mL HCG, Qual (NEG) Urine Color Urine Appearance Urine pH (5.0-8.0) Ur Specific [place] (1.001-1.035) Urine Protein (NEGATIVE) mg/dL Urine Glucose (UA) (NEGATIVE) mg/dL Urine Ketones (NEGATIVE) mg/dL Urine Occult Blood (NEGATIVE) Urine Nitrite (NEGATIVE) Urine Bilirubin (NEGATIVE) Urine Urobilinogen (<2.0) EU/dL Ur Leukocyte Esterase (NEGATIVE) Urine RBC (0-2/HPF) Urine WBC (0-5/HPF) Ur Epithelial Cells (NONE-FEW) Amorphous Sediment (NEGATIVE) Urine Bacteria (NEGATIVE) Urine Mucus (NONE-MOD) Ketones (NEG) SARS Virus RNA (PCR) (NEGATIVE) 09/12/19 09/13/19 09/13/19 Range/Units 23:12 00:21 01:02 WBC (4.0-11.0) K/uL RBC (4.30-5.90) M/uL Hgb (12.0-16.0) g/dL Hct (36.0-46.0) % MCV (80.0-98.0) fL MCH (27.0-32.0) pg MCHC (31.0-37.0) g/dL RDW Std Deviation (28.0-62.0) fl RDW Coeff of Cecilia (11.0-15.0) % Plt Count (150-400) K/uL MPV (7.40-12.00) fL Neut % (Auto) (48.0-80.0) % Lymph % (Auto) (16.0-40.0) % [place] % (Auto) (0.0-15.0) % Eos % (Auto) (0.0-7.0) % Baso % (Auto) (0.0-1.5) % Neut # (Auto) (1.4-5.7) K/uL Lymph # (Auto) (0.6-2.4) K/uL [place] # (Auto) (0.0-0.8) K/uL Eos # (Auto) (0.0-0.7) K/uL Baso # (Auto) (0.0-0.1) K/uL Nucleated RBC % /100WBC Nucleated RBCs # K/uL INR ABG pH (7.35-7.45) ABG pCO2 (35-45) mmHG ABG pO2 (75-100) mmHG ABG HCO3 (22-26) mEq/L ABG Total CO2 ABG Base Excess (-2.0-2.0) VBG pH (7.31-7.41) VBG pCO2 (35-45) mmHG VBG pO2 (30-40) mmHG VBG HCO3 (22-30) mEq/L VBG Total CO2 (41-51) mmol/L VBG Base Excess (-3.0-3.0) Lactate (0.20-2.00) mmol/L Sodium 137 (136-145) mmol/L Potassium 3.3 L (3.5-5.1) mmol/L Chloride 105 (98-107) mmol/L Carbon Dioxide 8.3 L (21.0-32.0) mmol/L BUN 5 L (7.0-18.0) mg/dL Creatinine 0.5 L (0.6-1.0) mg/dL Est Cr Clr Drug Dosing 139.49 Estimated GFR (MDRD) > 60.0 ml/min Glucose 187 H (74-106) mg/dL POC Glucose 151 H 168 H (60-110) mg/dL Hemoglobin A1c (4.5-6.2) % Calcium 8.1 L (8.5-10.1) mg/dL Phosphorus (2.6-4.7) mg/dL Magnesium (1.8-2.4) mg/dL Total Bilirubin (0.2-1.0) mg/dL AST (15-37) IU/L ALT (14-63) IU/L Alkaline Phosphatase (46-116) U/L Troponin I (0.000-0.056) ng/mL Total Protein (6.4-8.2) g/dL Albumin (3.4-5.0) g/dL Globulin (2.6-4.0) g/dL Albumin/Globulin Ratio (0.9-1.6) TSH 3rd Generation (0.36-3.74) uIU/mL HCG, Qual (NEG) Urine Color Urine Appearance Urine pH (5.0-8.0) Ur Specific [place] (1.001-1.035) Urine Protein (NEGATIVE) mg/dL Urine Glucose (UA) (NEGATIVE) mg/dL Urine Ketones (NEGATIVE) mg/dL Urine Occult Blood (NEGATIVE) Urine Nitrite (NEGATIVE) Urine Bilirubin (NEGATIVE) Urine Urobilinogen (<2.0) EU/dL Ur Leukocyte Esterase (NEGATIVE) Urine RBC (0-2/HPF) Urine WBC (0-5/HPF) Ur Epithelial Cells (NONE-FEW) Amorphous Sediment (NEGATIVE) Urine Bacteria (NEGATIVE) Urine Mucus (NONE-MOD) Ketones (NEG) SARS Virus RNA (PCR) (NEGATIVE) 09/13/19 09/13/19 09/13/19 Range/Units 01:02 02:03 03:09 WBC (4.0-11.0) K/uL RBC (4.30-5.90) M/uL Hgb (12.0-16.0) g/dL Hct (36.0-46.0) % MCV (80.0-98.0) fL MCH (27.0-32.0) pg MCHC (31.0-37.0) g/dL RDW Std Deviation (28.0-62.0) fl RDW Coeff of Cecilia (11.0-15.0) % Plt Count (150-400) K/uL MPV (7.40-12.00) fL Neut % (Auto) (48.0-80.0) % Lymph % (Auto) (16.0-40.0) % [place] % (Auto) (0.0-15.0) % Eos % (Auto) (0.0-7.0) % Baso % (Auto) (0.0-1.5) % Neut # (Auto) (1.4-5.7) K/uL Lymph # (Auto) (0.6-2.4) K/uL [place] # (Auto) (0.0-0.8) K/uL Eos # (Auto) (0.0-0.7) K/uL Baso # (Auto) (0.0-0.1) K/uL Nucleated RBC % /100WBC Nucleated RBCs # K/uL INR ABG pH (7.35-7.45) ABG pCO2 (35-45) mmHG ABG pO2 (75-100) mmHG ABG HCO3 (22-26) mEq/L ABG Total CO2 ABG Base Excess (-2.0-2.0) VBG pH (7.31-7.41) VBG pCO2 (35-45) mmHG VBG pO2 (30-40) mmHG VBG HCO3 (22-30) mEq/L VBG Total CO2 (41-51) mmol/L VBG Base Excess (-3.0-3.0) Lactate (0.20-2.00) mmol/L Sodium (136-145) mmol/L Potassium (3.5-5.1) mmol/L Chloride (98-107) mmol/L Carbon Dioxide (21.0-32.0) mmol/L BUN (7.0-18.0) mg/dL Creatinine (0.6-1.0) mg/dL Est Cr Clr Drug Dosing Estimated GFR (MDRD) ml/min Glucose (74-106) mg/dL POC Glucose 179 H 174 H 229 H (60-110) mg/dL Hemoglobin A1c (4.5-6.2) % Calcium (8.5-10.1) mg/dL Phosphorus (2.6-4.7) mg/dL Magnesium (1.8-2.4) mg/dL Total Bilirubin (0.2-1.0) mg/dL AST (15-37) IU/L ALT (14-63) IU/L Alkaline Phosphatase (46-116) U/L Troponin I (0.000-0.056) ng/mL Total Protein (6.4-8.2) g/dL Albumin (3.4-5.0) g/dL Globulin (2.6-4.0) g/dL Albumin/Globulin Ratio (0.9-1.6) TSH 3rd Generation (0.36-3.74) uIU/mL HCG, Qual (NEG) Urine Color Urine Appearance Urine pH (5.0-8.0) Ur Specific [place] (1.001-1.035) Urine Protein (NEGATIVE) mg/dL Urine Glucose (UA) (NEGATIVE) mg/dL Urine Ketones (NEGATIVE) mg/dL Urine Occult Blood (NEGATIVE) Urine Nitrite (NEGATIVE) Urine Bilirubin (NEGATIVE) Urine Urobilinogen (<2.0) EU/dL Ur Leukocyte Esterase (NEGATIVE) Urine RBC (0-2/HPF) Urine WBC (0-5/HPF) Ur Epithelial Cells (NONE-FEW) Amorphous Sediment (NEGATIVE) Urine Bacteria (NEGATIVE) Urine Mucus (NONE-MOD) Ketones (NEG) SARS Virus RNA (PCR) (NEGATIVE) 09/13/19 09/13/19 09/13/19 Range/Units 04:08 04:57 05:00 WBC (4.0-11.0) K/uL RBC (4.30-5.90) M/uL Hgb (12.0-16.0) g/dL Hct (36.0-46.0) % MCV (80.0-98.0) fL MCH (27.0-32.0) pg MCHC (31.0-37.0) g/dL RDW Std Deviation (28.0-62.0) fl RDW Coeff of Cecilia (11.0-15.0) % Plt Count (150-400) K/uL MPV (7.40-12.00) fL Neut % (Auto) (48.0-80.0) % Lymph % (Auto) (16.0-40.0) % [place] % (Auto) (0.0-15.0) % Eos % (Auto) (0.0-7.0) % Baso % (Auto) (0.0-1.5) % Neut # (Auto) (1.4-5.7) K/uL Lymph # (Auto) (0.6-2.4) K/uL [place] # (Auto) (0.0-0.8) K/uL Eos # (Auto) (0.0-0.7) K/uL Baso # (Auto) (0.0-0.1) K/uL Nucleated RBC % /100WBC Nucleated RBCs # K/uL INR ABG pH (7.35-7.45) ABG pCO2 (35-45) mmHG ABG pO2 (75-100) mmHG ABG HCO3 (22-26) mEq/L ABG Total CO2 ABG Base Excess (-2.0-2.0) VBG pH (7.31-7.41) VBG pCO2 (35-45) mmHG VBG pO2 (30-40) mmHG VBG HCO3 (22-30) mEq/L VBG Total CO2 (41-51) mmol/L VBG Base Excess (-3.0-3.0) Lactate (0.20-2.00) mmol/L Sodium 135 L (136-145) mmol/L Potassium 3.3 L (3.5-5.1) mmol/L Chloride 104 (98-107) mmol/L Carbon Dioxide 10.4 L (21.0-32.0) mmol/L BUN 4 L (7.0-18.0) mg/dL Creatinine 0.6 (0.6-1.0) mg/dL Est Cr Clr Drug Dosing 116.24 Estimated GFR (MDRD) > 60.0 ml/min Glucose 236 H (74-106) mg/dL POC Glucose 235 H 197 H (60-110) mg/dL Hemoglobin A1c (4.5-6.2) % Calcium 8.0 L (8.5-10.1) mg/dL Phosphorus (2.6-4.7) mg/dL Magnesium (1.8-2.4) mg/dL Total Bilirubin (0.2-1.0) mg/dL AST (15-37) IU/L ALT (14-63) IU/L Alkaline Phosphatase (46-116) U/L Troponin I (0.000-0.056) ng/mL Total Protein (6.4-8.2) g/dL Albumin (3.4-5.0) g/dL Globulin (2.6-4.0) g/dL Albumin/Globulin Ratio (0.9-1.6) TSH 3rd Generation (0.36-3.74) uIU/mL HCG, Qual (NEG) Urine Color Urine Appearance Urine pH (5.0-8.0) Ur Specific [place] (1.001-1.035) Urine Protein (NEGATIVE) mg/dL Urine Glucose (UA) (NEGATIVE) mg/dL Urine Ketones (NEGATIVE) mg/dL Urine Occult Blood (NEGATIVE) Urine Nitrite (NEGATIVE) Urine Bilirubin (NEGATIVE) Urine Urobilinogen (<2.0) EU/dL Ur Leukocyte Esterase (NEGATIVE) Urine RBC (0-2/HPF) Urine WBC (0-5/HPF) Ur Epithelial Cells (NONE-FEW) Amorphous Sediment (NEGATIVE) Urine Bacteria (NEGATIVE) Urine Mucus (NONE-MOD) Ketones (NEG) SARS Virus RNA (PCR) (NEGATIVE) 09/13/19 09/13/19 09/13/19 Range/Units 05:00 06:04 08:05 WBC (4.0-11.0) K/uL RBC (4.30-5.90) M/uL Hgb (12.0-16.0) g/dL Hct (36.0-46.0) % MCV (80.0-98.0) fL MCH (27.0-32.0) pg MCHC (31.0-37.0) g/dL RDW Std Deviation (28.0-62.0) fl RDW Coeff of Cecilia (11.0-15.0) % Plt Count (150-400) K/uL MPV (7.40-12.00) fL Neut % (Auto) (48.0-80.0) % Lymph % (Auto) (16.0-40.0) % [place] % (Auto) (0.0-15.0) % Eos % (Auto) (0.0-7.0) % Baso % (Auto) (0.0-1.5) % Neut # (Auto) (1.4-5.7) K/uL Lymph # (Auto) (0.6-2.4) K/uL [place] # (Auto) (0.0-0.8) K/uL Eos # (Auto) (0.0-0.7) K/uL Baso # (Auto) (0.0-0.1) K/uL Nucleated RBC % /100WBC Nucleated RBCs # K/uL INR ABG pH (7.35-7.45) ABG pCO2 (35-45) mmHG ABG pO2 (75-100) mmHG ABG HCO3 (22-26) mEq/L ABG Total CO2 ABG Base Excess (-2.0-2.0) VBG pH (7.31-7.41) VBG pCO2 (35-45) mmHG VBG pO2 (30-40) mmHG VBG HCO3 (22-30) mEq/L VBG Total CO2 (41-51) mmol/L VBG Base Excess (-3.0-3.0) Lactate (0.20-2.00) mmol/L Sodium (136-145) mmol/L Potassium (3.5-5.1) mmol/L Chloride (98-107) mmol/L Carbon Dioxide (21.0-32.0) mmol/L BUN (7.0-18.0) mg/dL Creatinine (0.6-1.0) mg/dL Est Cr Clr Drug Dosing Estimated GFR (MDRD) ml/min Glucose (74-106) mg/dL POC Glucose 257 H 272 H (60-110) mg/dL Hemoglobin A1c 11.3 H (4.5-6.2) % Calcium (8.5-10.1) mg/dL Phosphorus (2.6-4.7) mg/dL Magnesium (1.8-2.4) mg/dL Total Bilirubin (0.2-1.0) mg/dL AST (15-37) IU/L ALT (14-63) IU/L Alkaline Phosphatase (46-116) U/L Troponin I (0.000-0.056) ng/mL Total Protein (6.4-8.2) g/dL Albumin (3.4-5.0) g/dL Globulin (2.6-4.0) g/dL Albumin/Globulin Ratio (0.9-1.6) TSH 3rd Generation (0.36-3.74) uIU/mL HCG, Qual (NEG) Urine Color Urine Appearance Urine pH (5.0-8.0) Ur Specific [place] (1.001-1.035) Urine Protein (NEGATIVE) mg/dL Urine Glucose (UA) (NEGATIVE) mg/dL Urine Ketones (NEGATIVE) mg/dL Urine Occult Blood (NEGATIVE) Urine Nitrite (NEGATIVE) Urine Bilirubin (NEGATIVE) Urine Urobilinogen (<2.0) EU/dL Ur Leukocyte Esterase (NEGATIVE) Urine RBC (0-2/HPF) Urine WBC (0-5/HPF) Ur Epithelial Cells (NONE-FEW) Amorphous Sediment (NEGATIVE) Urine Bacteria (NEGATIVE) Urine Mucus (NONE-MOD) Ketones (NEG) SARS Virus RNA (PCR) (NEGATIVE) 09/13/19 Range/Units 09:09 WBC (4.0-11.0) K/uL RBC (4.30-5.90) M/uL Hgb (12.0-16.0) g/dL Hct (36.0-46.0) % MCV (80.0-98.0) fL MCH (27.0-32.0) pg MCHC (31.0-37.0) g/dL RDW Std Deviation (28.0-62.0) fl RDW Coeff of Cecilia (11.0-15.0) % Plt Count (150-400) K/uL MPV (7.40-12.00) fL Neut % (Auto) (48.0-80.0) % Lymph % (Auto) (16.0-40.0) % [place] % (Auto) (0.0-15.0) % Eos % (Auto) (0.0-7.0) % Baso % (Auto) (0.0-1.5) % Neut # (Auto) (1.4-5.7) K/uL Lymph # (Auto) (0.6-2.4) K/uL [place] # (Auto) (0.0-0.8) K/uL Eos # (Auto) (0.0-0.7) K/uL Baso # (Auto) (0.0-0.1) K/uL Nucleated RBC % /100WBC Nucleated RBCs # K/uL INR ABG pH (7.35-7.45) ABG pCO2 (35-45) mmHG ABG pO2 (75-100) mmHG ABG HCO3 (22-26) mEq/L ABG Total CO2 ABG Base Excess (-2.0-2.0) VBG pH (7.31-7.41) VBG pCO2 (35-45) mmHG VBG pO2 (30-40) mmHG VBG HCO3 (22-30) mEq/L VBG Total CO2 (41-51) mmol/L VBG Base Excess (-3.0-3.0) Lactate (0.20-2.00) mmol/L Sodium (136-145) mmol/L Potassium (3.5-5.1) mmol/L Chloride (98-107) mmol/L Carbon Dioxide (21.0-32.0) mmol/L BUN (7.0-18.0) mg/dL Creatinine (0.6-1.0) mg/dL Est Cr Clr Drug Dosing Estimated GFR (MDRD) ml/min Glucose (74-106) mg/dL POC Glucose 257 H (60-110) mg/dL Hemoglobin A1c (4.5-6.2) % Calcium (8.5-10.1) mg/dL Phosphorus (2.6-4.7) mg/dL Magnesium (1.8-2.4) mg/dL Total Bilirubin (0.2-1.0) mg/dL AST (15-37) IU/L ALT (14-63) IU/L Alkaline Phosphatase (46-116) U/L Troponin I (0.000-0.056) ng/mL Total Protein (6.4-8.2) g/dL Albumin (3.4-5.0) g/dL Globulin (2.6-4.0) g/dL Albumin/Globulin Ratio (0.9-1.6) TSH 3rd Generation (0.36-3.74) uIU/mL HCG, Qual (NEG) Urine Color Urine Appearance Urine pH (5.0-8.0) Ur Specific [place] (1.001-1.035) Urine Protein (NEGATIVE) mg/dL Urine Glucose (UA) (NEGATIVE) mg/dL Urine Ketones (NEGATIVE) mg/dL Urine Occult Blood (NEGATIVE) Urine Nitrite (NEGATIVE) Urine Bilirubin (NEGATIVE) Urine Urobilinogen (<2.0) EU/dL Ur Leukocyte Esterase (NEGATIVE) Urine RBC (0-2/HPF) Urine WBC (0-5/HPF) Ur Epithelial Cells (NONE-FEW) Amorphous Sediment (NEGATIVE) Urine Bacteria (NEGATIVE) Urine Mucus (NONE-MOD) Ketones (NEG) SARS Virus RNA (PCR) (NEGATIVE) Lauri Results Last 24 Hours: Microbiology 09/12/19 16:34 Anaerobic Blood Culture - Final Blood - Venous - Lab Draw Med Orders - Current: Current Medications Acetaminophen (Tylenol) 650 mg PO Q6H PRN PRN Reason: fever, pain, headache Last Admin: 09/13/19 04:30 Dose: 650 mg Documented by: Famotidine (Pepcid) 20 mg IVPUSH DAILY RALPH Last Admin: 09/13/19 08:19 Dose: 20 mg Documented by: Insulin Human Regular 100 unit (/ Sodium Chloride) 100 mls @ 3 mls/hr IV TITRATE RALPH; Protocol Last Titration: 09/13/19 09:09 Dose: 3 unit/hr, 3 mls/hr Documented by: Potassium Chloride/Dextrose/Sod Cl (D5 1/2 Ns W/ 40 Meq/L Kcl) 1,000 mls @ 150 mls/hr IV ASDIRECTED RALPH Last Admin: 09/13/19 05:01 Dose: 150 mls/hr Documented by: Potassium Phosphate 30 mmole/ (Sodium Chloride) 510 mls @ 127.5 mls/hr IV NOW ONE Stop: 09/13/19 10:00 Insulin Human Regular (Novolin R) 7 unit SUBCUT ASDIRECTED RALPH; Protocol Last Admin: 09/12/19 18:15 Dose: Not Given Documented by: Ondansetron HCl (Zofran) 4 mg IVPUSH Q4H PRN PRN Reason: Nausea Last Admin: 09/13/19 08:20 Dose: 4 mg Documented by: Potassium Chloride (Potassium Chloride Solution) 40 meq PO ONETIME ONE Stop: 09/13/19 10:04 Sodium Chloride (Saline Flush) 10 ml FLUSH ASDIRECTED PRN PRN Reason: Keep Vein Open Sodium Chloride (Saline Flush) 2.5 ml FLUSH ASDIRECTED PRN PRN Reason: Keep Vein Open Last Admin: 09/13/19 08:20 Dose: 2.5 ml Documented by: Discontinued Medications Sodium Chloride (Normal Saline) 1,000 mls @ 999 mls/hr IV .Bolus ONE Stop: 09/12/19 16:13 Last Admin: 09/12/19 15:54 Dose: 999 mls/hr Documented by: Insulin Human Regular 100 unit (/ Sodium Chloride) 100 mls @ 7 mls/hr IV TITRATE RALPH; Protocol Last Titration: 09/12/19 21:09 Dose: 1.5 unit/hr, 1.5 mls/hr Documented by: Potassium Chloride 40 meq/ (Premix) 100 mls @ 25 mls/hr IV ONETIME ONE Stop: 09/12/19 20:28 Last Admin: 09/12/19 16:46 Dose: 25 mls/hr Documented by: Sodium Chloride (Normal Saline) 1,000 mls @ 125 mls/hr IV ASDIRECTED RALPH Last Admin: 09/12/19 16:53 Dose: 125 mls/hr Documented by: Potassium Chloride/Dextrose/Sod Cl (D5 1/2 Ns W/ 40 Meq/L Kcl) 1,000 mls @ 125 mls/hr IV ASDIRECTED [facility] Last Infusion: 09/13/19 02:09 Dose: 150 mls/hr Documented by: Sodium Chloride (Normal Saline) 1,000 mls @ 999 mls/hr IV .Bolus ONE Stop: 09/12/19 20:00 Last Admin: 09/12/19 19:19 Dose: 999 mls/hr Documented by: Sodium Chloride (Normal Saline) 1,000 mls @ 999 mls/hr IV ONETIME ONE Stop: 09/12/19 22:22 Last Admin: 09/12/19 21:24 Dose: Not Given Documented by: Potassium Chloride/Sodium Chloride (Normal Saline With 40 Meq Kcl) 1,000 mls @ 200 mls/hr IV ASDIRECTED RALPH Stop: 09/13/19 03:44 Last Infusion: 09/13/19 02:09 Dose: 0 mls/hr Documented by: Iopamidol (Isovue Multipack-370 (76%)) 100 ml IVPUSH ONETIME STA Stop: 09/12/19 16:46 Last Admin: 09/12/19 16:45 Dose: 100 ml Documented by: Ondansetron HCl (Zofran) 4 mg IVPUSH ONETIME ONE Stop: 09/12/19 19:08 Last Admin: 09/12/19 19:16 Dose: 4 mg Documented by: Ondansetron HCl (Zofran) Confirm Administered Dose 4 mg .ROUTE .STK-MED ONE Stop: 09/12/19 19:09 Last Admin: 09/12/19 19:20 Dose: Not Given Documented by: Potassium Chloride (Klor-Con M20) 40 meq PO ONETIME ONE Stop: 09/12/19 22:33 Last Admin: 09/12/19 22:43 Dose: 40 meq Documented by: Potassium Chloride (Klor-Con M20) 40 meq PO ONETIME ONE Stop: 09/13/19 08:29 Last Admin: 09/13/19 09:05 Dose: 40 meq Documented by: Sodium Bicarbonate (Sodium Bicarbonate 4.2%) 5 meq IVPUSH ONETIME ONE Stop: 09/12/19 17:31 Last Admin: 09/12/19 17:37 Dose: 5 meq Documented by: - Exam General: Alert, Oriented Lungs: Clear to Auscultation, Normal Respiratory Effort Cardiovascular: Regular Rate, Regular Rhythm GI/Abdominal Exam: Soft, Non-Tender, No Distention Extremities: Non-Tender, No Pedal Edema Skin: Warm, Dry, Intact Sepsis Event Note - Evaluation Sepsis Screening Result: No Definite Risk - Focused Exam Vital Signs: Vital Signs Temp Resp BP Pulse Ox 09/13/19 09:00 15 99/60 98 09/13/19 08:00 36.6 C 12 106/67 96 09/13/19 07:00 18 116/70 99 09/13/19 06:00 18 106/60 97 09/13/19 05:00 13 113/64 98 09/13/19 04:00 37.1 C 13 111/64 97 09/13/19 03:00 17 113/65 97 09/13/19 02:00 17 105/63 98 09/13/19 01:00 15 106/68 99 09/13/19 00:00 36.9 C 15 99/62 98 09/12/19 23:00 16 106/61 97 Date Exam was Performed: 09/13/19 Time Exam was Performed: 10:11 - Problem List Review Problem List Initiated/Reviewed/Updated: Yes - My Orders Last 24 Hours: My Active Orders 09/12/19 20:00 Blood Glucose Check, Bedside [RC] Q1HR 09/12/19 22:34 Oxygen Therapy [RC] PRN Up ad Karlee [RC] ASDIRECTED VTE/DVT Education [RC] PER UNIT ROUTINE Vital Signs [RC] Q1H Consult to Diabetic Nurse Specialist [CONS] Routine Ondansetron [Zofran] 4 mg IVPUSH Q4H PRN Resuscitation Status Routine 09/13/19 02:00 Insulin Regular, Human [NovoLIN R] 100 unit Sodium Chloride 0.9% [Normal Saline] 99 ml IV TITRATE 09/13/19 02:13 D5 1/2 NS w/ 40 mEq/L KCl 1,000 ml IV ASDIRECTED 09/13/19 Breakfast NPO [Nothing Per Oral Diet] [DIET] 09/13/19 09:23 BASIC METABOLIC PANEL,BMP [CHEM] Q4H 09/13/19 12:57 BASIC METABOLIC PANEL,BMP [CHEM] Q4H 09/13/19 16:57 BASIC METABOLIC PANEL,BMP [CHEM] Q4H - Plan Plan:: 33 yo female admitted for DKA DKA: Continue insulin drip, trend BMP to ensure closure of anion gap. adult educator consulted. Hypokalemia: replacing
--- NOTE | 2019-09-13 11:25 | PN ---
THC Physician - Brief Progress [id number]/21/2020 10:04[facility] cathy NormaCHELE - KENDRA (ESTELA) - WILLY PENADate of Service 09/13/2019 10:04HPI/Events of Note Magnesium level orderedReplete PO liquid KCLReplete IV Phos, and consider started on PO phos margaret orrow 09/13Interventions Minor-Communication with other healthcare providers and/or family, Routine mo difications to care plan (e.g. PRN medications for pain, fever)
[2019-09-13 13:45] LABS: BLOOD UREA NITROGEN,BUN 4 mg/dL (7.0-18.0); CARBON DIOXIDE,CO2 14.2 mmol/L (21.0-32.0); CHLORIDE,CL 107 mmol/L (98-107); GLUCOSE RANDOM 222 mg/dL (74-106); POTASSIUM,K 3.2 mmol/L (3.5-5.1); SODIUM,NA 138 mmol/L (136-145)
[2019-09-13] MEDS: Phosphorus #1 250 MG Tab PO SCH ×3 (15:10→23:12)
[2019-09-13 17:20] LABS: BLOOD UREA NITROGEN,BUN 3 mg/dL (7.0-18.0); CARBON DIOXIDE,CO2 16.6 mmol/L (21.0-32.0); CHLORIDE,CL 107 mmol/L (98-107); GLUCOSE RANDOM 193 mg/dL (74-106); POTASSIUM,K 3.3 mmol/L (3.5-5.1); SODIUM,NA 137 mmol/L (136-145)
[2019-09-13] MEDS ORDERED: Insulin Glargine,Human Rec. Analog 100 Units/ML 3 ML Pen SUBCUT SCH (18:00)
--- NOTE | 2019-09-13 18:03 | PN ---
THC Physician - Brief Progress [id number]/21/2020 17:58[facility] Norma Linares, CHELE - KENDRA (ESTELA) - KENDRA CARRILLOWILLY CortneyDate of Service 09/13/2019 17:58HPI/Events of Note eICU udpate:Discussed patient with bedside team as BG is now in the 180's, calculated AG (12.9) and patient continue to require K supplementation while on insulin gtt with most recent K 3.3plan:-Wi ll transition to lantus 10U now with one hour overlap with insulin gtt. SS already ordered.-Start PO diet -Stop IVF once insulin gtt as has been stopped-K 40 meq replacement orderedInterventions Major-H yperglycemia - active titration of insulin therapyElectronically Signed by: DENIS BILLINGS) on 0 09/13/2019 18:02
[2019-09-13] MEDS ORDERED: Insulin Regular, Human 100 Units/ML 10 ML Vial SUBCUT SCH (19:04)
[2019-09-13] MEDS: Ibuprofen 400 MG Tab PO PRN (20:58)
[2019-09-13] MEDS: Insulin Regular, Human 100 Units/ML 10 ML Vial SUBCUT SCH (21:02)
[2019-09-13 21:40] LABS: BLOOD UREA NITROGEN,BUN 4 mg/dL (7.0-18.0); CARBON DIOXIDE,CO2 15.3 mmol/L (21.0-32.0); CHLORIDE,CL 99 mmol/L (98-107); GLUCOSE RANDOM 336 mg/dL (74-106); POTASSIUM,K 3.2 mmol/L (3.5-5.1); SODIUM,NA 133 mmol/L (136-145)
[2019-09-14] MEDS: Ibuprofen 400 MG Tab PO PRN ×4 (02:34→22:12)
[2019-09-14] MEDS: Acetaminophen 325 MG Tab PO PRN ×3 (05:20→18:31)
[2019-09-14 05:59] LABS: BLOOD UREA NITROGEN,BUN 3 mg/dL (7.0-18.0); CARBON DIOXIDE,CO2 19.8 mmol/L (21.0-32.0); CHLORIDE,CL 105 mmol/L (98-107); GLUCOSE RANDOM 216 mg/dL (74-106); SODIUM,NA 138 mmol/L (136-145)
[2019-09-14] MEDS ORDERED: Potassium Chloride 20 MEQ Tab.ER PO ONE (06:13)
[2019-09-14] MEDS: Phosphorus #1 250 MG Tab PO SCH ×4 (06:44→23:13)
[2019-09-14] MEDS: Insulin Regular, Human 100 Units/ML 10 ML Vial SUBCUT SCH (07:37)
[2019-09-14] MEDS: Famotidine 20 MG/2 ML SDV IVPUSH SCH (08:28)
--- NOTE | 2019-09-14 09:59 | PCM.PN ---
- General Info Date of Service: 09/14/19 - Review of Systems Systems Review Comment:: feeling better, no shortness of breath or chest pain, reports headache - Patient Data Vitals - Most Recent: Last Vital Signs Temp 36.3 C 09/14/19 08:00 Pulse 93 09/13/19 23:00 Resp 15 09/14/19 09:00 BP 102/71 09/14/19 09:00 Pulse Ox 98 09/14/19 09:00 Weight - Most Recent: 74.1 kg I&O - Last 24 Hours: Intake & Output 09/13/19 09/14/19 09/14/19 22:59 06:59 14:59 Intake Total 200 900 Output Total 1300 1900 Balance -1100 -1000 Lab Results Last 24 Hours: Laboratory Results - last 24 hr 09/12/19 09/13/19 09/13/19 Range/Units 15:10 09:23 09:23 Sodium 133 L (136-145) mmol/L Potassium 3.0 L (3.5-5.1) mmol/L Chloride 104 (98-107) mmol/L Carbon Dioxide 11.9 L (21.0-32.0) mmol/L BUN 3 L (7.0-18.0) mg/dL Creatinine 0.6 (0.6-1.0) mg/dL Est Cr Clr Drug Dosing 116.24 mL/min Estimated GFR (MDRD) > 60.0 ml/min Glucose 253 H (74-106) mg/dL POC Glucose (60-110) mg/dL Calcium 8.4 L (8.5-10.1) mg/dL Phosphorus (2.6-4.7) mg/dL Magnesium 1.8 (1.8-2.4) mg/dL Vitamin D 25-Hydroxy 24.8 L (30.0-100.0) ng/mL Procalcitonin <0.05 (<0.10) ng/mL 09/13/19 09/13/19 09/13/19 Range/Units 09:23 10:07 11:06 Sodium (136-145) mmol/L Potassium (3.5-5.1) mmol/L Chloride (98-107) mmol/L Carbon Dioxide (21.0-32.0) mmol/L BUN (7.0-18.0) mg/dL Creatinine (0.6-1.0) mg/dL Est Cr Clr Drug Dosing mL/min Estimated GFR (MDRD) ml/min Glucose (74-106) mg/dL POC Glucose 243 H 219 H (60-110) mg/dL Calcium (8.5-10.1) mg/dL Phosphorus 1.1 L (2.6-4.7) mg/dL Magnesium (1.8-2.4) mg/dL Vitamin D 25-Hydroxy (30.0-100.0) ng/mL Procalcitonin (<0.10) ng/mL 09/13/19 09/13/19 09/13/19 Range/Units 12:04 13:09 13:15 Sodium 138 (136-145) mmol/L Potassium 3.2 L (3.5-5.1) mmol/L Chloride 107 (98-107) mmol/L Carbon Dioxide 14.2 L (21.0-32.0) mmol/L BUN 4 L (7.0-18.0) mg/dL Creatinine 0.6 (0.6-1.0) mg/dL Est Cr Clr Drug Dosing 116.24 mL/min Estimated GFR (MDRD) > 60.0 ml/min Glucose 222 H (74-106) mg/dL POC Glucose 202 H 226 H (60-110) mg/dL Calcium 8.8 (8.5-10.1) mg/dL Phosphorus (2.6-4.7) mg/dL Magnesium (1.8-2.4) mg/dL Vitamin D 25-Hydroxy (30.0-100.0) ng/mL Procalcitonin (<0.10) ng/mL 09/13/19 09/13/19 09/13/19 Range/Units 14:21 15:12 16:11 Sodium (136-145) mmol/L Potassium (3.5-5.1) mmol/L Chloride (98-107) mmol/L Carbon Dioxide (21.0-32.0) mmol/L BUN (7.0-18.0) mg/dL Creatinine (0.6-1.0) mg/dL Est Cr Clr Drug Dosing mL/min Estimated GFR (MDRD) ml/min Glucose (74-106) mg/dL POC Glucose 215 H 215 H 184 H (60-110) mg/dL Calcium (8.5-10.1) mg/dL Phosphorus (2.6-4.7) mg/dL Magnesium (1.8-2.4) mg/dL Vitamin D 25-Hydroxy (30.0-100.0) ng/mL Procalcitonin (<0.10) ng/mL 09/13/19 09/13/19 09/13/19 Range/Units 16:58 17:04 18:09 Sodium 137 (136-145) mmol/L Potassium 3.3 L (3.5-5.1) mmol/L Chloride 107 (98-107) mmol/L Carbon Dioxide 16.6 L (21.0-32.0) mmol/L BUN 3 L (7.0-18.0) mg/dL Creatinine 0.6 (0.6-1.0) mg/dL Est Cr Clr Drug Dosing 116.24 mL/min Estimated GFR (MDRD) > 60.0 ml/min Glucose 193 H (74-106) mg/dL POC Glucose 186 H 184 H (60-110) mg/dL Calcium 8.6 (8.5-10.1) mg/dL Phosphorus (2.6-4.7) mg/dL Magnesium (1.8-2.4) mg/dL Vitamin D 25-Hydroxy (30.0-100.0) ng/mL Procalcitonin (<0.10) ng/mL 09/13/19 09/13/19 09/13/19 Range/Units 18:59 20:01 21:01 Sodium (136-145) mmol/L Potassium (3.5-5.1) mmol/L Chloride (98-107) mmol/L Carbon Dioxide (21.0-32.0) mmol/L BUN (7.0-18.0) mg/dL Creatinine (0.6-1.0) mg/dL Est Cr Clr Drug Dosing mL/min Estimated GFR (MDRD) ml/min Glucose (74-106) mg/dL POC Glucose 249 H 312 H 336 H (60-110) mg/dL Calcium (8.5-10.1) mg/dL Phosphorus (2.6-4.7) mg/dL Magnesium (1.8-2.4) mg/dL Vitamin D 25-Hydroxy (30.0-100.0) ng/mL Procalcitonin (<0.10) ng/mL 09/13/19 09/14/19 09/14/19 Range/Units 21:18 05:20 07:35 Sodium 133 L 138 (136-145) mmol/L Potassium 3.2 L 3.0 L (3.5-5.1) mmol/L Chloride 99 105 (98-107) mmol/L Carbon Dioxide 15.3 L 19.8 L (21.0-32.0) mmol/L BUN 4 L 3 L (7.0-18.0) mg/dL Creatinine 0.6 0.6 (0.6-1.0) mg/dL Est Cr Clr Drug Dosing 116.24 116.24 mL/min Estimated GFR (MDRD) > 60.0 > 60.0 ml/min Glucose 336 H 216 H (74-106) mg/dL POC Glucose 241 H (60-110) mg/dL Calcium 9.1 9.6 (8.5-10.1) mg/dL Phosphorus 2.7 (2.6-4.7) mg/dL Magnesium 1.8 (1.8-2.4) mg/dL Vitamin D 25-Hydroxy (30.0-100.0) ng/mL Procalcitonin (<0.10) ng/mL Lauri Results Last 24 Hours: Microbiology 09/12/19 16:34 Aerobic Blood Culture - Preliminary Blood - Venous - Lab Draw NO GROWTH AFTER 1 DAY Anaerobic Blood Culture - Final 09/12/19 15:41 Aerobic Blood Culture - Preliminary Blood - Venous NO GROWTH AFTER 1 DAY Anaerobic Blood Culture - Preliminary NO GROWTH AFTER 1 DAY Med Orders - Current: Current Medications Acetaminophen (Tylenol) 650 mg PO Q6H PRN PRN Reason: fever, pain, headache Last Admin: 09/14/19 05:20 Dose: 650 mg Documented by: Famotidine (Pepcid) 20 mg IVPUSH DAILY RALPH Last Admin: 09/14/19 08:28 Dose: 20 mg Documented by: Ibuprofen (Motrin) 400 mg PO Q6H PRN PRN Reason: Headache Last Admin: 09/14/19 08:34 Dose: 400 mg Documented by: Insulin Glargine (Lantus Solostar) 12 units SUBCUT DAILY@1800 RALPH Insulin Human Regular (Novolin R) 1 - 4 unit SUBCUT QIDACANDBED [facility]; Protocol Last Admin: 09/14/19 07:37 Dose: 2 units Documented by: Ondansetron HCl (Zofran) 4 mg IVPUSH Q4H PRN PRN Reason: Nausea Last Admin: 09/13/19 08:20 Dose: 4 mg Documented by: Sodium Chloride (Saline Flush) 10 ml FLUSH ASDIRECTED PRN PRN Reason: Keep Vein Open Sodium Chloride (Saline Flush) 2.5 ml FLUSH ASDIRECTED PRN PRN Reason: Keep Vein Open Last Admin: 09/13/19 08:20 Dose: 2.5 ml Documented by: Sodium Phosphate (Neutra-Phos) 250 mg PO QID RALPH Last Admin: 09/14/19 06:44 Dose: 250 mg Documented by: Discontinued Medications Sodium Chloride (Normal Saline) 1,000 mls @ 999 mls/hr IV .Bolus ONE Stop: 09/12/19 16:13 Last Admin: 09/12/19 15:54 Dose: 999 mls/hr Documented by: Insulin Human Regular 100 unit (/ Sodium Chloride) 100 mls @ 7 mls/hr IV TITRATE RALPH; Protocol Last Titration: 09/12/19 21:09 Dose: 1.5 unit/hr, 1.5 mls/hr Documented by: Potassium Chloride 40 meq/ (Premix) 100 mls @ 25 mls/hr IV ONETIME ONE Stop: 09/12/19 20:28 Last Admin: 09/12/19 16:46 Dose: 25 mls/hr Documented by: Sodium Chloride (Normal Saline) 1,000 mls @ 125 mls/hr IV ASDIRECTED RALPH Last Admin: 09/12/19 16:53 Dose: 125 mls/hr Documented by: Potassium Chloride/Dextrose/Sod Cl (D5 1/2 Ns W/ 40 Meq/L Kcl) 1,000 mls @ 125 mls/hr IV ASDIRECTED RALPH Last Infusion: 09/13/19 02:09 Dose: 150 mls/hr Documented by: Sodium Chloride (Normal Saline) 1,000 mls @ 999 mls/hr IV .Bolus ONE Stop: 09/12/19 20:00 Last Admin: 09/12/19 19:19 Dose: 999 mls/hr Documented by: Sodium Chloride (Normal Saline) 1,000 mls @ 999 mls/hr IV ONETIME ONE Stop: 09/12/19 22:22 Last Admin: 09/12/19 21:24 Dose: Not Given Documented by: Potassium Chloride/Sodium Chloride (Normal Saline With 40 Meq Kcl) 1,000 mls @ 200 mls/hr IV ASDIRECTED RALPH Stop: 09/13/19 03:44 Last Infusion: 09/13/19 02:09 Dose: 0 mls/hr Documented by: Insulin Human Regular 100 unit (/ Sodium Chloride) 100 mls @ 3 mls/hr IV TITRATE RALPH; Protocol Last Admin: 09/13/19 17:05 Dose: 2 unit/hr, 2 mls/hr Documented by: Potassium Chloride/Dextrose/Sod Cl (D5 1/2 Ns W/ 40 Meq/L Kcl) 1,000 mls @ 150 mls/hr IV ASDIRECTED RALPH Last Admin: 09/13/19 10:38 Dose: 150 mls/hr Documented by: Potassium Phosphate 30 mmole/ (Sodium Chloride) 510 mls @ 127.5 mls/hr IV NOW ONE Stop: 09/13/19 10:00 Last Admin: 09/13/19 10:54 Dose: Not Given Documented by: Insulin Glargine (Lantus Solostar) 10 units SUBCUT DAILY@1800 RALPH Last Admin: 09/13/19 18:11 Dose: 10 units Documented by: Insulin Human Regular (Novolin R) 7 unit SUBCUT ASDIRECTED [facility]; Protocol Last Admin: 09/12/19 18:15 Dose: Not Given Documented by: Insulin Human Regular (Novolin R) 1 - 4 unit SUBCUT ASDIRECTED [facility]; Protocol Iopamidol (Isovue Multipack-370 (76%)) 100 ml IVPUSH ONETIME STA Stop: 09/12/19 16:46 Last Admin: 09/12/19 16:45 Dose: 100 ml Documented by: Ondansetron HCl (Zofran) 4 mg IVPUSH ONETIME ONE Stop: 09/12/19 19:08 Last Admin: 09/12/19 19:16 Dose: 4 mg Documented by: Ondansetron HCl (Zofran) Confirm Administered Dose 4 mg .ROUTE .STK-MED ONE Stop: 09/12/19 19:09 Last Admin: 09/12/19 19:20 Dose: Not Given Documented by: Potassium Chloride (Klor-Con M20) 40 meq PO ONETIME ONE Stop: 09/12/19 22:33 Last Admin: 09/12/19 22:43 Dose: 40 meq Documented by: Potassium Chloride (Klor-Con M20) 40 meq PO ONETIME ONE Stop: 09/13/19 08:29 Last Admin: 09/13/19 09:05 Dose: 40 meq Documented by: Potassium Chloride (Potassium Chloride Solution) 40 meq PO ONETIME ONE Stop: 09/13/19 10:04 Last Admin: 09/13/19 10:55 Dose: Not Given Documented by: Potassium Chloride (Klor-Con M20) 40 meq PO ONETIME ONE Stop: 09/13/19 11:01 Last Admin: 09/13/19 11:00 Dose: 40 meq Documented by: Potassium Chloride (Klor-Con M20) 40 meq PO ONETIME ONE Stop: 09/13/19 17:55 Last Admin: 09/13/19 18:10 Dose: 40 meq Documented by: Potassium Chloride (Klor-Con M20) 40 meq PO ONETIME ONE Stop: 09/13/19 21:54 Last Admin: 09/13/19 22:43 Dose: 40 meq Documented by: Potassium Chloride (Klor-Con M20) 40 meq PO ONETIME ONE Stop: 09/14/19 06:14 Last Admin: 09/14/19 06:44 Dose: 40 meq Documented by: Sodium Bicarbonate (Sodium Bicarbonate 4.2%) 5 meq IVPUSH ONETIME ONE Stop: 09/12/19 17:31 Last Admin: 09/12/19 17:37 Dose: 5 meq Documented by: - Exam General: Alert, Oriented Neck: Supple Lungs: Clear to Auscultation, Normal Respiratory Effort Cardiovascular: Regular Rate, Regular Rhythm GI/Abdominal Exam: Soft, Non-Tender, No Distention Extremities: Normal Inspection, Non-Tender Skin: Warm, Dry, Intact Neurological: No New Focal Deficit Sepsis Event Note - Evaluation Sepsis Screening Result: No Definite Risk - Focused Exam Vital Signs: Vital Signs Temp Pulse Resp BP Pulse Ox 09/14/19 09:00 15 102/71 98 09/14/19 08:00 36.3 C 15 105/70 99 09/14/19 07:00 15 103/68 99 09/14/19 06:00 14 105/67 95 09/14/19 05:00 36.4 C 16 95/61 94 L 09/14/19 04:00 15 95/62 95 09/14/19 03:00 18 99/66 95 09/14/19 02:00 16 101/63 93 L 09/14/19 01:00 15 96/64 97 09/14/19 00:00 16 106/68 94 L 09/13/19 23:00 36.7 C 93 19 103/69 98 09/13/19 22:00 17 108/69 95 Date Exam was Performed: 09/14/19 Time Exam was Performed: 09:57 - Problem List Review Problem List Initiated/Reviewed/Updated: Yes - My Orders Last 24 Hours: My Active Orders 09/13/19 15:00 Phosphorus #1 [Neutra-Phos] 250 mg PO QID 09/13/19 20:39 Blood Glucose Check, Bedside [RC] QIDACANDBED 09/13/19 20:40 Ibuprofen [Motrin] 400 mg PO Q6H PRN 09/13/19 21:00 Insulin Regular, Human [NovoLIN R] 1 - 4 unit SUBCUT QIDACANDBED 09/14/19 18:00 Insulin Glarg,Human.Rec.Analog [LantUS Solostar] 12 units SUBCUT DAILY@1800 - Plan Plan:: 33 yo female admitted for DKA DKA: switched to subqu insulin. Will transfer to regular medical floor and if continues to do well will discharge home tomorrow. Hypokalemia: replacing
[2019-09-14] MEDS ORDERED: Insulin Aspart 100 Units/ML 3 ML Pen SUBCUT STA ×2 (11:22→22:33)
[2019-09-14] MEDS: Insulin Aspart 100 Units/ML 3 ML Pen SUBCUT SCH ×2 (11:45→17:54)
[2019-09-14] MEDS: Ondansetron 4 MG/2 ML SDV IVPUSH PRN (16:05)
[2019-09-14] MEDS ORDERED: Insulin Glargine,Human Rec. Analog 100 Units/ML 3 ML Pen SUBCUT SCH (18:00)
[2019-09-14] MEDS ORDERED: Insulin Glargine,Human Rec. Analog 100 Units/ML 3 ML Pen SUBCUT ONE (23:30)
[2019-09-15] MEDS: Acetaminophen 325 MG Tab PO PRN ×2 (00:50→08:47)
[2019-09-15] MEDS: Ibuprofen 400 MG Tab PO PRN ×2 (04:18→23:42)
[2019-09-15] MEDS: Phosphorus #1 250 MG Tab PO SCH ×4 (06:46→23:34)
[2019-09-15] MEDS: Famotidine 20 MG/2 ML SDV IVPUSH SCH (08:44)
[2019-09-15 09:39] LABS: BLOOD UREA NITROGEN,BUN 11 mg/dL (7.0-18.0); CARBON DIOXIDE,CO2 25.9 mmol/L (21.0-32.0); CHLORIDE,CL 103 mmol/L (98-107); GLUCOSE RANDOM 260 mg/dL (74-106); POTASSIUM,K 3.1 mmol/L (3.5-5.1); SODIUM,NA 141 mmol/L (136-145)
[2019-09-15] MEDS: Insulin Aspart 100 Units/ML 3 ML Pen SUBCUT SCH ×5 (09:45→18:33)
[2019-09-15] MEDS ORDERED: Potassium Chloride 20 MEQ Tab.ER PO ONE (10:30)
--- NOTE | 2019-09-15 11:06 | PCM.PN ---
- General Info Date of Service: 09/15/19 - Review of Systems Systems Review Comment:: patient reports headache and some nausea, does not feel ready for discharge - Patient Data Vitals - Most Recent: Last Vital Signs Temp 36.5 C 09/15/19 08:42 Pulse 99 09/15/19 08:42 Resp 14 09/15/19 08:42 BP 114/57 L 09/15/19 08:42 Pulse Ox 99 09/15/19 08:42 Weight - Most Recent: 74.1 kg I&O - Last 24 Hours: Intake & Output 09/14/19 09/15/19 09/15/19 22:59 06:59 14:59 Intake Total 2700 2000 Output Total 1800 Balance 900 2000 Lab Results Last 24 Hours: Laboratory Results - last 24 hr 09/14/19 09/14/19 09/14/19 Range/Units 11:16 14:13 17:48 WBC (4.0-11.0) K/uL RBC (4.30-5.90) M/uL Hgb (12.0-16.0) g/dL Hct (36.0-46.0) % MCV (80.0-98.0) fL MCH (27.0-32.0) pg MCHC (31.0-37.0) g/dL RDW Std Deviation (28.0-62.0) fl RDW Coeff of Cecilia (11.0-15.0) % Plt Count (150-400) K/uL MPV (7.40-12.00) fL Neut % (Auto) (48.0-80.0) % Lymph % (Auto) (16.0-40.0) % [place] % (Auto) (0.0-15.0) % Eos % (Auto) (0.0-7.0) % Baso % (Auto) (0.0-1.5) % Neut # (Auto) (1.4-5.7) K/uL Lymph # (Auto) (0.6-2.4) K/uL [place] # (Auto) (0.0-0.8) K/uL Eos # (Auto) (0.0-0.7) K/uL Baso # (Auto) (0.0-0.1) K/uL Nucleated RBC % /100WBC Nucleated RBCs # K/uL Sodium (136-145) mmol/L Potassium (3.5-5.1) mmol/L Chloride (98-107) mmol/L Carbon Dioxide (21.0-32.0) mmol/L BUN (7.0-18.0) mg/dL Creatinine (0.6-1.0) mg/dL Est Cr Clr Drug Dosing mL/min Estimated GFR (MDRD) ml/min Glucose (74-106) mg/dL POC Glucose 420 H 319 H 255 H (60-110) mg/dL Calcium (8.5-10.1) mg/dL Phosphorus (2.6-4.7) mg/dL Magnesium (1.8-2.4) mg/dL 09/14/19 09/15/19 09/15/19 Range/Units 22:11 08:51 08:51 WBC 4.59 (4.0-11.0) K/uL RBC 4.43 (4.30-5.90) M/uL Hgb 14.4 (12.0-16.0) g/dL Hct 40.4 (36.0-46.0) % MCV 91.2 (80.0-98.0) fL MCH 32.5 H (27.0-32.0) pg MCHC 35.6 (31.0-37.0) g/dL RDW Std Deviation 49.1 (28.0-62.0) fl RDW Coeff of Cecilia 15 (11.0-15.0) % Plt Count 172 (150-400) K/uL MPV 10.40 (7.40-12.00) fL Neut % (Auto) 49.5 (48.0-80.0) % Lymph % (Auto) 30.7 (16.0-40.0) % [place] % (Auto) 16.1 H (0.0-15.0) % Eos % (Auto) 3.3 (0.0-7.0) % Baso % (Auto) 0.4 (0.0-1.5) % Neut # (Auto) 2.3 (1.4-5.7) K/uL Lymph # (Auto) 1.4 (0.6-2.4) K/uL [place] # (Auto) 0.7 (0.0-0.8) K/uL Eos # (Auto) 0.2 (0.0-0.7) K/uL Baso # (Auto) 0.0 (0.0-0.1) K/uL Nucleated RBC % 0.0 /100WBC Nucleated RBCs # 0 K/uL Sodium 141 (136-145) mmol/L Potassium 3.1 L (3.5-5.1) mmol/L Chloride 103 (98-107) mmol/L Carbon Dioxide 25.9 (21.0-32.0) mmol/L BUN 11 (7.0-18.0) mg/dL Creatinine 0.5 L (0.6-1.0) mg/dL Est Cr Clr Drug Dosing 139.49 mL/min Estimated GFR (MDRD) > 60.0 ml/min Glucose 260 H (74-106) mg/dL POC Glucose 406 H (60-110) mg/dL Calcium 9.4 (8.5-10.1) mg/dL Phosphorus (2.6-4.7) mg/dL Magnesium (1.8-2.4) mg/dL 09/15/19 09/15/19 Range/Units 08:51 09:10 WBC (4.0-11.0) K/uL RBC (4.30-5.90) M/uL Hgb (12.0-16.0) g/dL Hct (36.0-46.0) % MCV (80.0-98.0) fL MCH (27.0-32.0) pg MCHC (31.0-37.0) g/dL RDW Std Deviation (28.0-62.0) fl RDW Coeff of Cecilia (11.0-15.0) % Plt Count (150-400) K/uL MPV (7.40-12.00) fL Neut % (Auto) (48.0-80.0) % Lymph % (Auto) (16.0-40.0) % [place] % (Auto) (0.0-15.0) % Eos % (Auto) (0.0-7.0) % Baso % (Auto) (0.0-1.5) % Neut # (Auto) (1.4-5.7) K/uL Lymph # (Auto) (0.6-2.4) K/uL [place] # (Auto) (0.0-0.8) K/uL Eos # (Auto) (0.0-0.7) K/uL Baso # (Auto) (0.0-0.1) K/uL Nucleated RBC % /100WBC Nucleated RBCs # K/uL Sodium (136-145) mmol/L Potassium (3.5-5.1) mmol/L Chloride (98-107) mmol/L Carbon Dioxide (21.0-32.0) mmol/L BUN (7.0-18.0) mg/dL Creatinine (0.6-1.0) mg/dL Est Cr Clr Drug Dosing mL/min Estimated GFR (MDRD) ml/min Glucose (74-106) mg/dL POC Glucose 259 H (60-110) mg/dL Calcium (8.5-10.1) mg/dL Phosphorus 4.5 (2.6-4.7) mg/dL Magnesium 2.1 (1.8-2.4) mg/dL Lauri Results Last 24 Hours: Microbiology 09/12/19 16:34 Aerobic Blood Culture - Preliminary Blood - Venous - Lab Draw NO GROWTH AFTER 2 DAYS Anaerobic Blood Culture - Final 09/12/19 15:41 Aerobic Blood Culture - Preliminary Blood - Venous NO GROWTH AFTER 2 DAYS Anaerobic Blood Culture - Preliminary NO GROWTH AFTER 2 DAYS Med Orders - Current: Current Medications Acetaminophen (Tylenol) 650 mg PO Q6H PRN PRN Reason: fever, pain, headache Last Admin: 09/15/19 08:47 Dose: 650 mg Documented by: Famotidine (Pepcid) 20 mg IVPUSH DAILY [facility] Last Admin: 09/15/19 08:44 Dose: 20 mg Documented by: Ibuprofen (Motrin) 400 mg PO Q6H PRN PRN Reason: Headache Last Admin: 09/15/19 04:18 Dose: 400 mg Documented by: Insulin Aspart (Novolog) 0 unit SUBCUT TIDAC [facility]; Protocol Last Admin: 09/15/19 09:45 Dose: 6 units Documented by: Insulin Aspart (Novolog) 5 unit SUBCUT TIDAC [facility] Insulin Glargine (Lantus Solostar) 22 units SUBCUT DAILY@1800 [facility] Ondansetron HCl (Zofran) 4 mg IVPUSH Q4H PRN PRN Reason: Nausea Last Admin: 09/14/19 16:05 Dose: 4 mg Documented by: Sodium Chloride (Saline Flush) 10 ml FLUSH ASDIRECTED PRN PRN Reason: Keep Vein Open Sodium Chloride (Saline Flush) 2.5 ml FLUSH ASDIRECTED PRN PRN Reason: Keep Vein Open Last Admin: 09/13/19 08:20 Dose: 2.5 ml Documented by: Sodium Phosphate (Neutra-Phos) 250 mg PO QID [facility] Last Admin: 09/15/19 06:46 Dose: 250 mg Documented by: Discontinued Medications Sodium Chloride (Normal Saline) 1,000 mls @ 999 mls/hr IV .Bolus ONE Stop: 09/12/19 16:13 Last Admin: 09/12/19 15:54 Dose: 999 mls/hr Documented by: Insulin Human Regular 100 unit (/ Sodium Chloride) 100 mls @ 7 mls/hr IV TITRATE [facility]; Protocol Last Titration: 09/12/19 21:09 Dose: 1.5 unit/hr, 1.5 mls/hr Documented by: Potassium Chloride 40 meq/ (Premix) 100 mls @ 25 mls/hr IV ONETIME ONE Stop: 09/12/19 20:28 Last Admin: 09/12/19 16:46 Dose: 25 mls/hr Documented by: Sodium Chloride (Normal Saline) 1,000 mls @ 125 mls/hr IV ASDIRECTED [facility] Last Admin: 09/12/19 16:53 Dose: 125 mls/hr Documented by: Potassium Chloride/Dextrose/Sod Cl (D5 1/2 Ns W/ 40 Meq/L Kcl) 1,000 mls @ 125 mls/hr IV ASDIRECTED [facility] Last Infusion: 09/13/19 02:09 Dose: 150 mls/hr Documented by: Sodium Chloride (Normal Saline) 1,000 mls @ 999 mls/hr IV .Bolus ONE Stop: 09/12/19 20:00 Last Admin: 09/12/19 19:19 Dose: 999 mls/hr Documented by: Sodium Chloride (Normal Saline) 1,000 mls @ 999 mls/hr IV ONETIME ONE Stop: 09/12/19 22:22 Last Admin: 09/12/19 21:24 Dose: Not Given Documented by: Potassium Chloride/Sodium Chloride (Normal Saline With 40 Meq Kcl) 1,000 mls @ 200 mls/hr IV ASDIRECTED [facility] Stop: 09/13/19 03:44 Last Infusion: 09/13/19 02:09 Dose: 0 mls/hr Documented by: Insulin Human Regular 100 unit (/ Sodium Chloride) 100 mls @ 3 mls/hr IV TITRATE [facility]; Protocol Last Admin: 09/13/19 17:05 Dose: 2 unit/hr, 2 mls/hr Documented by: Potassium Chloride/Dextrose/Sod Cl (D5 1/2 Ns W/ 40 Meq/L Kcl) 1,000 mls @ 150 mls/hr IV ASDIRECTED [facility] Last Admin: 09/13/19 10:38 Dose: 150 mls/hr Documented by: Potassium Phosphate 30 mmole/ (Sodium Chloride) 510 mls @ 127.5 mls/hr IV NOW ONE Stop: 09/13/19 10:00 Last Admin: 09/13/19 10:54 Dose: Not Given Documented by: Insulin Aspart (Novolog) 5 unit SUBCUT NOW STA Stop: 09/14/19 11:23 Last Admin: 09/14/19 11:58 Dose: Not Given Documented by: Insulin Aspart (Novolog) 10 unit SUBCUT NOW STA Stop: 09/14/19 22:34 Last Admin: 09/14/19 22:49 Dose: 10 units Documented by: Insulin Glargine (Lantus Solostar) 10 units SUBCUT DAILY@1800 [facility] Last Admin: 09/13/19 18:11 Dose: 10 units Documented by: Insulin Glargine (Lantus Solostar) 12 units SUBCUT DAILY@1800 [facility] Last Admin: 09/14/19 18:35 Dose: 12 units Documented by: Insulin Glargine (Lantus Solostar) 8 units SUBCUT ONETIME ONE Stop: 09/14/19 23:31 Last Admin: 09/14/19 23:30 Dose: 8 units Documented by: Insulin Human Regular (Novolin R) 7 unit SUBCUT ASDIRECTED [facility]; Protocol Last Admin: 09/12/19 18:15 Dose: Not Given Documented by: Insulin Human Regular (Novolin R) 1 - 4 unit SUBCUT ASDIRECTED [facility]; Protocol Insulin Human Regular (Novolin R) 1 - 4 unit SUBCUT QIDACANDBED [facility]; Protocol Last Admin: 09/14/19 07:37 Dose: 2 units Documented by: Iopamidol (Isovue Multipack-370 (76%)) 100 ml IVPUSH ONETIME STA Stop: 09/12/19 16:46 Last Admin: 09/12/19 16:45 Dose: 100 ml Documented by: Ondansetron HCl (Zofran) 4 mg IVPUSH ONETIME ONE Stop: 09/12/19 19:08 Last Admin: 09/12/19 19:16 Dose: 4 mg Documented by: Ondansetron HCl (Zofran) Confirm Administered Dose 4 mg .ROUTE .STK-MED ONE Stop: 09/12/19 19:09 Last Admin: 09/12/19 19:20 Dose: Not Given Documented by: Potassium Chloride (Klor-Con M20) 40 meq PO ONETIME ONE Stop: 09/12/19 22:33 Last Admin: 09/12/19 22:43 Dose: 40 meq Documented by: Potassium Chloride (Klor-Con M20) 40 meq PO ONETIME ONE Stop: 09/13/19 08:29 Last Admin: 09/13/19 09:05 Dose: 40 meq Documented by: Potassium Chloride (Potassium Chloride Solution) 40 meq PO ONETIME ONE Stop: 09/13/19 10:04 Last Admin: 09/13/19 10:55 Dose: Not Given Documented by: Potassium Chloride (Klor-Con M20) 40 meq PO ONETIME ONE Stop: 09/13/19 11:01 Last Admin: 09/13/19 11:00 Dose: 40 meq Documented by: Potassium Chloride (Klor-Con M20) 40 meq PO ONETIME ONE Stop: 09/13/19 17:55 Last Admin: 09/13/19 18:10 Dose: 40 meq Documented by: Potassium Chloride (Klor-Con M20) 40 meq PO ONETIME ONE Stop: 09/13/19 21:54 Last Admin: 09/13/19 22:43 Dose: 40 meq Documented by: Potassium Chloride (Klor-Con M20) 40 meq PO ONETIME ONE Stop: 09/14/19 06:14 Last Admin: 09/14/19 06:44 Dose: 40 meq Documented by: Potassium Chloride (Klor-Con M20) 40 meq PO ONETIME ONE Stop: 09/15/19 10:31 Last Admin: 09/15/19 11:00 Dose: 40 meq Documented by: Sodium Bicarbonate (Sodium Bicarbonate 4.2%) 5 meq IVPUSH ONETIME ONE Stop: 09/12/19 17:31 Last Admin: 09/12/19 17:37 Dose: 5 meq Documented by: - Exam General: Alert, Oriented Neck: Supple Lungs: Clear to Auscultation, Normal Respiratory Effort Cardiovascular: Regular Rate, Regular Rhythm GI/Abdominal Exam: Soft Extremities: Non-Tender, No Pedal Edema Skin: Warm, Dry, Intact Neurological: No New Focal Deficit Sepsis Event Note - Evaluation Sepsis Screening Result: No Definite Risk - Focused Exam Vital Signs: Vital Signs Temp Pulse Resp BP Pulse Ox 09/15/19 08:42 36.5 C 99 14 114/57 L 99 09/15/19 04:15 36.1 C 80 16 92/50 L 97 09/14/19 23:15 36.4 C 89 16 104/64 96 Date Exam was Performed: 09/15/19 Time Exam was Performed: 11:04 - Problem List Review Problem List Initiated/Reviewed/Updated: Yes - My Orders Last 24 Hours: My Active Orders 09/15/19 11:30 Insulin Aspart [NovoLOG] 5 unit SUBCUT TIDAC 09/15/19 18:00 Insulin Glarg,Human.Rec.Analog [LantUS Solostar] 22 units SUBCUT DAILY@1800 - Plan Plan:: 33 yo female admitted for DKA DKA: switched to subqu insulin yesterday. Still having high blood glucose. Will increase lantus to 22 units daily and increase sliding scale insulin. Patient [facility] and should be arriving at her house. Hypokalemia: replacing
[2019-09-15] MEDS: Ondansetron 4 MG/2 ML SDV IVPUSH PRN (16:50)
[2019-09-15] MEDS ORDERED: Insulin Glargine,Human Rec. Analog 100 Units/ML 3 ML Pen SUBCUT SCH (18:00)
[2019-09-15] MEDS ORDERED: Insulin Glargine,Human Rec. Analog 100 Units/ML 3 ML Pen SUBCUT ONE (22:32)
[2019-09-16] MEDS: Acetaminophen 325 MG Tab PO PRN ×4 (04:19→23:40)
[2019-09-16] MEDS: Phosphorus #1 250 MG Tab PO SCH (06:25)
[2019-09-16 06:35] LABS: BLOOD UREA NITROGEN,BUN 13 mg/dL (7.0-18.0); CARBON DIOXIDE,CO2 30.4 mmol/L (21.0-32.0); CHLORIDE,CL 102 mmol/L (98-107); GLUCOSE RANDOM 267 mg/dL (74-106); POTASSIUM,K 2.6 mmol/L (3.5-5.1); SODIUM,NA 140 mmol/L (136-145)
[2019-09-16] MEDS ORDERED: Potassium Chloride 20 MEQ Tab.ER PO ONE ×2 (08:03→16:50)
[2019-09-16] MEDS ORDERED: Sodium Chloride 0.9% with KCl 1,000 ML IV ONE (08:03)
[2019-09-16] MEDS: Famotidine 20 MG/2 ML SDV IVPUSH SCH (08:35)
[2019-09-16] MEDS: Ibuprofen 400 MG Tab PO PRN ×3 (08:40→20:40)
[2019-09-16] MEDS: Insulin Aspart 100 Units/ML 3 ML Pen SUBCUT SCH ×7 (09:18→18:28)
--- NOTE | 2019-09-16 11:19 | PCM.PN ---
- General Info Date of Service: 09/16/19 Admission Dx/Problem (Free Text): Admission Diagnosis/Problem Admission Diagnosis/Problem Diabetic ketoacidosis Subjective Update: Feeling ok this morning, still feels tired. Tolerating diet well. Mild intermittent headache. Feeling comfortable with insulin injections. Functional Status: Reports: Pain Controlled, Tolerating Diet, Ambulating, Urinating - Review of Systems General: Reports: Fatigue, Malaise HEENT: Reports: Headaches (mild). Denies: Visual Changes Pulmonary: Reports: No Symptoms. Denies: Shortness of Breath, Cough Cardiovascular: Reports: No Symptoms. Denies: Chest Pain, Orthopnea Gastrointestinal: Reports: No Symptoms. Denies: Abdominal Pain, Nausea, Vomiting Genitourinary: Reports: No Symptoms Skin: Reports: No Symptoms Neurological: Reports: No Symptoms Psychiatric: Reports: No Symptoms - Patient Data Vitals - Most Recent: Last Vital Signs Temp 96.9 F 09/16/19 07:15 Pulse 75 09/16/19 07:15 Resp 18 09/15/19 23:34 BP 89/50 L 09/16/19 07:15 Pulse Ox 98 09/16/19 07:15 Weight - Most Recent: 74.1 kg I&O - Last 24 Hours: Intake & Output 09/15/19 09/16/19 09/16/19 22:59 06:59 14:59 Intake Total 2200 950 Output Total 1700 1050 Balance 500 -100 Lab Results Last 24 Hours: Laboratory Results - last 24 hr 09/15/19 09/15/19 09/15/19 Range/Units 13:31 17:48 20:40 WBC (4.0-11.0) K/uL RBC (4.30-5.90) M/uL Hgb (12.0-16.0) g/dL Hct (36.0-46.0) % MCV (80.0-98.0) fL MCH (27.0-32.0) pg MCHC (31.0-37.0) g/dL RDW Std Deviation (28.0-62.0) fl RDW Coeff of Cecilia (11.0-15.0) % Plt Count (150-400) K/uL MPV (7.40-12.00) fL Neut % (Auto) (48.0-80.0) % Lymph % (Auto) (16.0-40.0) % [place] % (Auto) (0.0-15.0) % Eos % (Auto) (0.0-7.0) % Baso % (Auto) (0.0-1.5) % Neut # (Auto) (1.4-5.7) K/uL Lymph # (Auto) (0.6-2.4) K/uL [place] # (Auto) (0.0-0.8) K/uL Eos # (Auto) (0.0-0.7) K/uL Baso # (Auto) (0.0-0.1) K/uL Nucleated RBC % /100WBC Nucleated RBCs # K/uL Sodium (136-145) mmol/L Potassium (3.5-5.1) mmol/L Chloride (98-107) mmol/L Carbon Dioxide (21.0-32.0) mmol/L BUN (7.0-18.0) mg/dL Creatinine (0.6-1.0) mg/dL Est Cr Clr Drug Dosing mL/min Estimated GFR (MDRD) ml/min Glucose (74-106) mg/dL POC Glucose 194 H 252 H 313 H (60-110) mg/dL Calcium (8.5-10.1) mg/dL Magnesium (1.8-2.4) mg/dL 09/16/19 09/16/19 09/16/19 Range/Units 05:35 05:35 05:35 WBC 5.61 (4.0-11.0) K/uL RBC 4.10 L (4.30-5.90) M/uL Hgb 13.2 (12.0-16.0) g/dL Hct 37.5 (36.0-46.0) % MCV 91.5 (80.0-98.0) fL MCH 32.2 H (27.0-32.0) pg MCHC 35.2 (31.0-37.0) g/dL RDW Std Deviation 47.9 (28.0-62.0) fl RDW Coeff of Cecilia 15 (11.0-15.0) % Plt Count 170 (150-400) K/uL MPV 10.40 (7.40-12.00) fL Neut % (Auto) 45.6 L (48.0-80.0) % Lymph % (Auto) 36.7 (16.0-40.0) % [place] % (Auto) 14.6 (0.0-15.0) % Eos % (Auto) 2.7 (0.0-7.0) % Baso % (Auto) 0.4 (0.0-1.5) % Neut # (Auto) 2.6 (1.4-5.7) K/uL Lymph # (Auto) 2.1 (0.6-2.4) K/uL [place] # (Auto) 0.8 (0.0-0.8) K/uL Eos # (Auto) 0.2 (0.0-0.7) K/uL Baso # (Auto) 0.0 (0.0-0.1) K/uL Nucleated RBC % 0.0 /100WBC Nucleated RBCs # 0 K/uL Sodium 140 (136-145) mmol/L Potassium 2.6 L (3.5-5.1) mmol/L Chloride 102 (98-107) mmol/L Carbon Dioxide 30.4 (21.0-32.0) mmol/L BUN 13 (7.0-18.0) mg/dL Creatinine 0.7 (0.6-1.0) mg/dL Est Cr Clr Drug Dosing 99.63 mL/min Estimated GFR (MDRD) > 60.0 ml/min Glucose 267 H (74-106) mg/dL POC Glucose (60-110) mg/dL Calcium 8.4 L (8.5-10.1) mg/dL Magnesium 2.1 (1.8-2.4) mg/dL 09/16/19 09/16/19 Range/Units 06:22 08:43 WBC (4.0-11.0) K/uL RBC (4.30-5.90) M/uL Hgb (12.0-16.0) g/dL Hct (36.0-46.0) % MCV (80.0-98.0) fL MCH (27.0-32.0) pg MCHC (31.0-37.0) g/dL RDW Std Deviation (28.0-62.0) fl RDW Coeff of Cecilia (11.0-15.0) % Plt Count (150-400) K/uL MPV (7.40-12.00) fL Neut % (Auto) (48.0-80.0) % Lymph % (Auto) (16.0-40.0) % [place] % (Auto) (0.0-15.0) % Eos % (Auto) (0.0-7.0) % Baso % (Auto) (0.0-1.5) % Neut # (Auto) (1.4-5.7) K/uL Lymph # (Auto) (0.6-2.4) K/uL [place] # (Auto) (0.0-0.8) K/uL Eos # (Auto) (0.0-0.7) K/uL Baso # (Auto) (0.0-0.1) K/uL Nucleated RBC % /100WBC Nucleated RBCs # K/uL Sodium (136-145) mmol/L Potassium (3.5-5.1) mmol/L Chloride (98-107) mmol/L Carbon Dioxide (21.0-32.0) mmol/L BUN (7.0-18.0) mg/dL Creatinine (0.6-1.0) mg/dL Est Cr Clr Drug Dosing mL/min Estimated GFR (MDRD) ml/min Glucose (74-106) mg/dL POC Glucose 284 H 283 H (60-110) mg/dL Calcium (8.5-10.1) mg/dL Magnesium (1.8-2.4) mg/dL Lauri Results Last 24 Hours: Microbiology 09/12/19 16:34 Aerobic Blood Culture - Preliminary Blood - Venous - Lab Draw NO GROWTH AFTER 3 DAYS Anaerobic Blood Culture - Final 09/12/19 15:41 Aerobic Blood Culture - Preliminary Blood - Venous NO GROWTH AFTER 3 DAYS Anaerobic Blood Culture - Preliminary NO GROWTH AFTER 3 DAYS Med Orders - Current: Current Medications Acetaminophen (Tylenol) 650 mg PO Q6H PRN PRN Reason: fever, pain, headache Last Admin: 09/16/19 10:45 Dose: 650 mg Documented by: Famotidine (Pepcid) 20 mg IVPUSH DAILY [facility] Last Admin: 09/16/19 08:35 Dose: 20 mg Documented by: Potassium Chloride/Sodium Chloride (Normal Saline With 40 Meq Kcl) 1,000 mls @ 150 mls/hr IV ONETIME ONE Stop: 09/16/19 14:42 Last Admin: 09/16/19 08:35 Dose: 150 mls/hr Documented by: Ibuprofen (Motrin) 400 mg PO Q6H PRN PRN Reason: Headache Last Admin: 09/16/19 08:40 Dose: 400 mg Documented by: Insulin Aspart (Novolog) 0 unit SUBCUT TIDAC [facility]; Protocol Last Admin: 09/16/19 09:19 Dose: 6 units Documented by: Insulin Aspart (Novolog) 5 unit SUBCUT TIDAC [facility] Last Admin: 09/16/19 09:18 Dose: 5 units Documented by: Insulin Glargine (Lantus Solostar) 22 units SUBCUT DAILY@1800 [facility] Last Admin: 09/15/19 21:32 Dose: 22 units Documented by: Ondansetron HCl (Zofran) 4 mg IVPUSH Q4H PRN PRN Reason: Nausea Last Admin: 09/15/19 16:50 Dose: 4 mg Documented by: Sodium Chloride (Saline Flush) 10 ml FLUSH ASDIRECTED PRN PRN Reason: Keep Vein Open Sodium Chloride (Saline Flush) 2.5 ml FLUSH ASDIRECTED PRN PRN Reason: Keep Vein Open Last Admin: 09/13/19 08:20 Dose: 2.5 ml Documented by: Sodium Phosphate (Neutra-Phos) 250 mg PO QID [facility] Last Admin: 09/16/19 06:25 Dose: 250 mg Documented by: Discontinued Medications Sodium Chloride (Normal Saline) 1,000 mls @ 999 mls/hr IV .Bolus ONE Stop: 09/12/19 16:13 Last Admin: 09/12/19 15:54 Dose: 999 mls/hr Documented by: Insulin Human Regular 100 unit (/ Sodium Chloride) 100 mls @ 7 mls/hr IV TITRATE [facility]; Protocol Last Titration: 09/12/19 21:09 Dose: 1.5 unit/hr, 1.5 mls/hr Documented by: Potassium Chloride 40 meq/ (Premix) 100 mls @ 25 mls/hr IV ONETIME ONE Stop: 09/12/19 20:28 Last Admin: 09/12/19 16:46 Dose: 25 mls/hr Documented by: Sodium Chloride (Normal Saline) 1,000 mls @ 125 mls/hr IV ASDIRECTED [facility] Last Admin: 09/12/19 16:53 Dose: 125 mls/hr Documented by: Potassium Chloride/Dextrose/Sod Cl (D5 1/2 Ns W/ 40 Meq/L Kcl) 1,000 mls @ 125 mls/hr IV ASDIRECTED [facility] Last Infusion: 09/13/19 02:09 Dose: 150 mls/hr Documented by: Sodium Chloride (Normal Saline) 1,000 mls @ 999 mls/hr IV .Bolus ONE Stop: 09/12/19 20:00 Last Admin: 09/12/19 19:19 Dose: 999 mls/hr Documented by: Sodium Chloride (Normal Saline) 1,000 mls @ 999 mls/hr IV ONETIME ONE Stop: 09/12/19 22:22 Last Admin: 09/12/19 21:24 Dose: Not Given Documented by: Potassium Chloride/Sodium Chloride (Normal Saline With 40 Meq Kcl) 1,000 mls @ 200 mls/hr IV ASDIRECTED [facility] Stop: 09/13/19 03:44 Last Infusion: 09/13/19 02:09 Dose: 0 mls/hr Documented by: Insulin Human Regular 100 unit (/ Sodium Chloride) 100 mls @ 3 mls/hr IV TITRATE [facility]; Protocol Last Admin: 09/13/19 17:05 Dose: 2 unit/hr, 2 mls/hr Documented by: Potassium Chloride/Dextrose/Sod Cl (D5 1/2 Ns W/ 40 Meq/L Kcl) 1,000 mls @ 150 mls/hr IV ASDIRECTED [facility] Last Admin: 09/13/19 10:38 Dose: 150 mls/hr Documented by: Potassium Phosphate 30 mmole/ (Sodium Chloride) 510 mls @ 127.5 mls/hr IV NOW ONE Stop: 09/13/19 10:00 Last Admin: 09/13/19 10:54 Dose: Not Given Documented by: Insulin Aspart (Novolog) 5 unit SUBCUT NOW STA Stop: 09/14/19 11:23 Last Admin: 09/14/19 11:58 Dose: Not Given Documented by: Insulin Aspart (Novolog) 10 unit SUBCUT NOW STA Stop: 09/14/19 22:34 Last Admin: 09/14/19 22:49 Dose: 10 units Documented by: Insulin Glargine (Lantus Solostar) 10 units SUBCUT DAILY@1800 [facility] Last Admin: 09/13/19 18:11 Dose: 10 units Documented by: Insulin Glargine (Lantus Solostar) 12 units SUBCUT DAILY@1800 RALPH Last Admin: 09/14/19 18:35 Dose: 12 units Documented by: Insulin Glargine (Lantus Solostar) 8 units SUBCUT ONETIME ONE Stop: 09/14/19 23:31 Last Admin: 09/14/19 23:30 Dose: 8 units Documented by: Insulin Human Regular (Novolin R) 7 unit SUBCUT ASDIRECTED [facility]; Protocol Last Admin: 09/12/19 18:15 Dose: Not Given Documented by: Insulin Human Regular (Novolin R) 1 - 4 unit SUBCUT ASDIRECTED [facility]; Protocol Insulin Human Regular (Novolin R) 1 - 4 unit SUBCUT QIDACANDBED [facility]; Protocol Last Admin: 09/14/19 07:37 Dose: 2 units Documented by: Iopamidol (Isovue Multipack-370 (76%)) 100 ml IVPUSH ONETIME STA Stop: 09/12/19 16:46 Last Admin: 09/12/19 16:45 Dose: 100 ml Documented by: Ondansetron HCl (Zofran) 4 mg IVPUSH ONETIME ONE Stop: 09/12/19 19:08 Last Admin: 09/12/19 19:16 Dose: 4 mg Documented by: Ondansetron HCl (Zofran) Confirm Administered Dose 4 mg .ROUTE .STK-MED ONE Stop: 09/12/19 19:09 Last Admin: 09/12/19 19:20 Dose: Not Given Documented by: Potassium Chloride (Klor-Con M20) 40 meq PO ONETIME ONE Stop: 09/12/19 22:33 Last Admin: 09/12/19 22:43 Dose: 40 meq Documented by: Potassium Chloride (Klor-Con M20) 40 meq PO ONETIME ONE Stop: 09/13/19 08:29 Last Admin: 09/13/19 09:05 Dose: 40 meq Documented by: Potassium Chloride (Potassium Chloride Solution) 40 meq PO ONETIME ONE Stop: 09/13/19 10:04 Last Admin: 09/13/19 10:55 Dose: Not Given Documented by: Potassium Chloride (Klor-Con M20) 40 meq PO ONETIME ONE Stop: 09/13/19 11:01 Last Admin: 09/13/19 11:00 Dose: 40 meq Documented by: Potassium Chloride (Klor-Con M20) 40 meq PO ONETIME ONE Stop: 09/13/19 17:55 Last Admin: 09/13/19 18:10 Dose: 40 meq Documented by: Potassium Chloride (Klor-Con M20) 40 meq PO ONETIME ONE Stop: 09/13/19 21:54 Last Admin: 09/13/19 22:43 Dose: 40 meq Documented by: Potassium Chloride (Klor-Con M20) 40 meq PO ONETIME ONE Stop: 09/14/19 06:14 Last Admin: 09/14/19 06:44 Dose: 40 meq Documented by: Potassium Chloride (Klor-Con M20) 40 meq PO ONETIME ONE Stop: 09/15/19 10:31 Last Admin: 09/15/19 11:00 Dose: 40 meq Documented by: Potassium Chloride (Klor-Con M20) 40 meq PO ONETIME ONE Stop: 09/16/19 08:04 Last Admin: 09/16/19 08:34 Dose: 40 meq Documented by: Sodium Bicarbonate (Sodium Bicarbonate 4.2%) 5 meq IVPUSH ONETIME ONE Stop: 09/12/19 17:31 Last Admin: 09/12/19 17:37 Dose: 5 meq Documented by: - Exam General: Alert, Oriented, Cooperative, No Acute Distress Lungs: Clear to Auscultation, Normal Respiratory Effort Cardiovascular: Regular Rate, Regular Rhythm GI/Abdominal Exam: Normal Bowel Sounds, Soft, Non-Tender Extremities: Normal Inspection, Normal Range of Motion, Non-Tender, No Pedal Edema Neurological: No New Focal Deficit Psy/Mental Status: Alert, Normal Affect, Normal Mood Sepsis Event Note - Evaluation Sepsis Screening Result: No Definite Risk - Focused Exam Vital Signs: Vital Signs Temp Pulse Resp BP Pulse Ox 09/16/19 07:15 96.9 F 75 89/50 L 98 09/16/19 04:21 88/58 L 09/15/19 23:34 97.2 F 80 18 82/49 L 93 L Date Exam was Performed: 09/16/19 Time Exam was Performed: 11:32 - Problem List & Annotations (1) Hypokalemia SNOMED Code(s): 11633290 Code(s): E87.6 - HYPOKALEMIA Status: Acute Current Visit: Yes (2) DKA (diabetic ketoacidoses) SNOMED Code(s): 635197243, 309861651 Code(s): E11.10 - TYPE 2 DIABETES MELLITUS WITH KETOACIDOSIS WITHOUT COMA Status: Resolved Current Visit: Yes Qualifiers: Diabetes mellitus complication detail: without coma (3) Diabetes mellitus, new onset SNOMED Code(s): 948362138, 753224019 Code(s): E11.9 - TYPE 2 DIABETES MELLITUS WITHOUT COMPLICATIONS Status: Acute Current Visit: Yes (4) Headache SNOMED Code(s): 09778819 Code(s): R51 - HEADACHE Status: Acute Current Visit: No - Problem List Review Problem List Initiated/Reviewed/Updated: Yes - My Orders Last 24 Hours: My Active Orders 09/16/19 08:03 Sodium Chloride 0.9% with KCl [Normal Saline with 40 mEq KCl] 1,000 ml IV ONETIME - Plan Plan:: 33 yo female admitted for DKA 1. DKA: resolved - BS management continues with subcutaneous insulin - Increase Lantus to 25 units tonight - Increase mealtime insulin to 8 units plus SSI with meals - Attempting to get glucometer, one from [place] will take nearly 2 weeks to arrive. reach out to DM educator 2. Hypokalemia: - replacing 40 PO and 40 IV today. Monitor VTE prophylaxis: SCDs and ambulation Dispo: 1-2 days pending glucose control
[2019-09-16] MEDS ORDERED: Insulin Aspart 100 Units/ML 3 ML Pen SUBCUT SCH (11:33)
[2019-09-16] MEDS: Sodium Chloride 0.9% 1,000 ML IV SCH (15:49)
[2019-09-16] MEDS ORDERED: Insulin Glargine,Human Rec. Analog 100 Units/ML 3 ML Pen SUBCUT SCH ×2 (18:00→21:00)
[2019-09-17] MEDS: Sodium Chloride 0.9% 1,000 ML IV SCH (01:38)
[2019-09-17 06:02] LABS: BLOOD UREA NITROGEN,BUN 11 mg/dL (7.0-18.0); CARBON DIOXIDE,CO2 32.7 mmol/L (21.0-32.0); CHLORIDE,CL 106 mmol/L (98-107); GLUCOSE RANDOM 214 mg/dL (74-106); POTASSIUM,K 3.6 mmol/L (3.5-5.1); SODIUM,NA 142 mmol/L (136-145)
--- NOTE | 2019-09-17 09:03 | PCM.DCSUM1 ---
Discharge Summary - Discharge Data Discharge Date: 09/17/19 Discharge Disposition: Home, Self-Care 01 Condition: Fair - Referral to Home Health Primary Care Physician: Brent Skelton NP - Patient Summary/Data Consults: Consultations 09/12/19 22:34 Consult to Diabetic Nurse Specialist [CONS] Routine - Discharge Plan Home Medications: Home Meds . [No Known Home Meds] 04/15/19 [History] Patient Handouts: Type 2 Diabetes Mellitus, Diagnosis, Adult, Hypoglycemia, Diabetic Ketoacidosis, Hyperglycemia, [id number], Preventing Diabetic Ketoacidosis Referrals: Brent Skelton NP [Primary Care Provider] - 09/22/19 10:30 am (1030 with the nurse and 1100 with the provider) - Patient Data Vitals - Most Recent: Last Vital Signs Temp 36.6 C 09/17/19 07:33 Pulse 84 09/17/19 07:33 Resp 16 09/17/19 04:19 BP 81/52 L 09/17/19 07:33 Pulse Ox 100 09/17/19 07:33 Weight - Most Recent: 78.744 kg I&O - Last 24 hours: Intake & Output 09/16/19 09/17/19 09/17/19 22:59 06:59 14:59 Intake Total 2580 1705 Output Total 1150 1450 Balance 1430 255 Lab Results - Last 24 hrs: Laboratory Results - last 24 hr 09/16/19 09/16/19 09/16/19 Range/Units 12:35 15:34 15:50 WBC (4.0-11.0) K/uL RBC (4.30-5.90) M/uL Hgb (12.0-16.0) g/dL Hct (36.0-46.0) % MCV (80.0-98.0) fL MCH (27.0-32.0) pg MCHC (31.0-37.0) g/dL RDW Std Deviation (28.0-62.0) fl RDW Coeff of Cecilia (11.0-15.0) % Plt Count (150-400) K/uL MPV (7.40-12.00) fL Neut % (Auto) (48.0-80.0) % Lymph % (Auto) (16.0-40.0) % [place] % (Auto) (0.0-15.0) % Eos % (Auto) (0.0-7.0) % Baso % (Auto) (0.0-1.5) % Neut # (Auto) (1.4-5.7) K/uL Lymph # (Auto) (0.6-2.4) K/uL [place] # (Auto) (0.0-0.8) K/uL Eos # (Auto) (0.0-0.7) K/uL Baso # (Auto) (0.0-0.1) K/uL Nucleated RBC % /100WBC Nucleated RBCs # K/uL Sodium (136-145) mmol/L Potassium (3.5-5.1) mmol/L Chloride (98-107) mmol/L Carbon Dioxide (21.0-32.0) mmol/L BUN (7.0-18.0) mg/dL Creatinine (0.6-1.0) mg/dL Est Cr Clr Drug Dosing mL/min Estimated GFR (MDRD) ml/min Glucose (74-106) mg/dL POC Glucose 146 H 82 130 H (60-110) mg/dL Calcium (8.5-10.1) mg/dL Phosphorus (2.6-4.7) mg/dL Magnesium (1.8-2.4) mg/dL 09/16/19 09/16/19 09/16/19 Range/Units 15:56 17:12 19:12 WBC (4.0-11.0) K/uL RBC (4.30-5.90) M/uL Hgb (12.0-16.0) g/dL Hct (36.0-46.0) % MCV (80.0-98.0) fL MCH (27.0-32.0) pg MCHC (31.0-37.0) g/dL RDW Std Deviation (28.0-62.0) fl RDW Coeff of Cecilia (11.0-15.0) % Plt Count (150-400) K/uL MPV (7.40-12.00) fL Neut % (Auto) (48.0-80.0) % Lymph % (Auto) (16.0-40.0) % [place] % (Auto) (0.0-15.0) % Eos % (Auto) (0.0-7.0) % Baso % (Auto) (0.0-1.5) % Neut # (Auto) (1.4-5.7) K/uL Lymph # (Auto) (0.6-2.4) K/uL [place] # (Auto) (0.0-0.8) K/uL Eos # (Auto) (0.0-0.7) K/uL Baso # (Auto) (0.0-0.1) K/uL Nucleated RBC % /100WBC Nucleated RBCs # K/uL Sodium (136-145) mmol/L Potassium 3.2 L (3.5-5.1) mmol/L Chloride (98-107) mmol/L Carbon Dioxide (21.0-32.0) mmol/L BUN (7.0-18.0) mg/dL Creatinine (0.6-1.0) mg/dL Est Cr Clr Drug Dosing mL/min Estimated GFR (MDRD) ml/min Glucose (74-106) mg/dL POC Glucose 186 H 266 H (60-110) mg/dL Calcium (8.5-10.1) mg/dL Phosphorus (2.6-4.7) mg/dL Magnesium (1.8-2.4) mg/dL 09/17/19 09/17/19 09/17/19 Range/Units 04:57 04:57 06:11 WBC 5.22 (4.0-11.0) K/uL RBC 3.61 L (4.30-5.90) M/uL Hgb 11.8 L (12.0-16.0) g/dL Hct 34.4 L (36.0-46.0) % MCV 95.3 (80.0-98.0) fL MCH 32.7 H (27.0-32.0) pg MCHC 34.3 (31.0-37.0) g/dL RDW Std Deviation 52.0 (28.0-62.0) fl RDW Coeff of Cecilia 15 (11.0-15.0) % Plt Count 151 (150-400) K/uL MPV 10.50 (7.40-12.00) fL Neut % (Auto) 38.9 L (48.0-80.0) % Lymph % (Auto) 43.3 H (16.0-40.0) % [place] % (Auto) 14.2 (0.0-15.0) % Eos % (Auto) 3.4 (0.0-7.0) % Baso % (Auto) 0.2 (0.0-1.5) % Neut # (Auto) 2.0 (1.4-5.7) K/uL Lymph # (Auto) 2.3 (0.6-2.4) K/uL [place] # (Auto) 0.7 (0.0-0.8) K/uL Eos # (Auto) 0.2 (0.0-0.7) K/uL Baso # (Auto) 0.0 (0.0-0.1) K/uL Nucleated RBC % 0.0 /100WBC Nucleated RBCs # 0 K/uL Sodium 142 (136-145) mmol/L Potassium 3.6 (3.5-5.1) mmol/L Chloride 106 (98-107) mmol/L Carbon Dioxide 32.7 H (21.0-32.0) mmol/L BUN 11 (7.0-18.0) mg/dL Creatinine 0.8 (0.6-1.0) mg/dL Est Cr Clr Drug Dosing 87.18 mL/min Estimated GFR (MDRD) > 60.0 ml/min Glucose 214 H (74-106) mg/dL POC Glucose 201 H (60-110) mg/dL Calcium 8.0 L (8.5-10.1) mg/dL Phosphorus 3.9 (2.6-4.7) mg/dL Magnesium 2.0 (1.8-2.4) mg/dL GUIDO Results - Last 24 hrs: Microbiology 09/12/19 16:34 Aerobic Blood Culture - Preliminary Blood - Venous - Lab Draw NO GROWTH AFTER 4 DAYS Anaerobic Blood Culture - Final 09/12/19 15:41 Aerobic Blood Culture - Preliminary Blood - Venous NO GROWTH AFTER 4 DAYS Anaerobic Blood Culture - Preliminary NO GROWTH AFTER 4 DAYS Med Orders - Current: Current Medications Acetaminophen (Tylenol) 650 mg PO Q6H PRN PRN Reason: fever, pain, headache Last Admin: 09/16/19 23:40 Dose: 650 mg Documented by: Sodium Chloride (Normal Saline) 1,000 mls @ 100 mls/hr IV ASDIRECTED RALPH Last Admin: 09/17/19 01:38 Dose: 100 mls/hr Documented by: Ibuprofen (Motrin) 400 mg PO Q6H PRN PRN Reason: Headache Last Admin: 09/16/19 20:40 Dose: 400 mg Documented by: Insulin Aspart (Novolog) 0 unit SUBCUT TIDAC [facility]; Protocol Last Admin: 09/16/19 18:28 Dose: 1 units Documented by: Insulin Aspart (Novolog) 6 unit SUBCUT TIDAC RALPH Last Admin: 09/16/19 18:27 Dose: 6 units Documented by: Insulin Glargine (Lantus Solostar) 25 units SUBCUT BEDTIME [facility] Last Admin: 09/16/19 20:43 Dose: 25 units Documented by: Ondansetron HCl (Zofran) 4 mg IVPUSH Q4H PRN PRN Reason: Nausea Last Admin: 09/15/19 16:50 Dose: 4 mg Documented by: Sodium Chloride (Saline Flush) 10 ml FLUSH ASDIRECTED PRN PRN Reason: Keep Vein Open Sodium Chloride (Saline Flush) 2.5 ml FLUSH ASDIRECTED PRN PRN Reason: Keep Vein Open Last Admin: 09/13/19 08:20 Dose: 2.5 ml Documented by: Discontinued Medications Famotidine (Pepcid) 20 mg IVPUSH DAILY [facility] Last Admin: 09/16/19 08:35 Dose: 20 mg Documented by: Sodium Chloride (Normal Saline) 1,000 mls @ 999 mls/hr IV .Bolus ONE Stop: 09/12/19 16:13 Last Admin: 09/12/19 15:54 Dose: 999 mls/hr Documented by: Insulin Human Regular 100 unit (/ Sodium Chloride) 100 mls @ 7 mls/hr IV TITRATE [facility]; Protocol Last Titration: 09/12/19 21:09 Dose: 1.5 unit/hr, 1.5 mls/hr Documented by: Potassium Chloride 40 meq/ (Premix) 100 mls @ 25 mls/hr IV ONETIME ONE Stop: 09/12/19 20:28 Last Admin: 09/12/19 16:46 Dose: 25 mls/hr Documented by: Sodium Chloride (Normal Saline) 1,000 mls @ 125 mls/hr IV ASDIRECTED [facility] Last Admin: 09/12/19 16:53 Dose: 125 mls/hr Documented by: Potassium Chloride/Dextrose/Sod Cl (D5 1/2 Ns W/ 40 Meq/L Kcl) 1,000 mls @ 125 mls/hr IV ASDIRECTED RALPH Last Infusion: 09/13/19 02:09 Dose: 150 mls/hr Documented by: Sodium Chloride (Normal Saline) 1,000 mls @ 999 mls/hr IV .Bolus ONE Stop: 09/12/19 20:00 Last Admin: 09/12/19 19:19 Dose: 999 mls/hr Documented by: Sodium Chloride (Normal Saline) 1,000 mls @ 999 mls/hr IV ONETIME ONE Stop: 09/12/19 22:22 Last Admin: 09/12/19 21:24 Dose: Not Given Documented by: Potassium Chloride/Sodium Chloride (Normal Saline With 40 Meq Kcl) 1,000 mls @ 200 mls/hr IV ASDIRECTED [facility] Stop: 09/13/19 03:44 Last Infusion: 09/13/19 02:09 Dose: 0 mls/hr Documented by: Insulin Human Regular 100 unit (/ Sodium Chloride) 100 mls @ 3 mls/hr IV TITRATE [facility]; Protocol Last Admin: 09/13/19 17:05 Dose: 2 unit/hr, 2 mls/hr Documented by: Potassium Chloride/Dextrose/Sod Cl (D5 1/2 Ns W/ 40 Meq/L Kcl) 1,000 mls @ 150 mls/hr IV ASDIRECTED [facility] Last Admin: 09/13/19 10:38 Dose: 150 mls/hr Documented by: Potassium Phosphate 30 mmole/ (Sodium Chloride) 510 mls @ 127.5 mls/hr IV NOW ONE Stop: 09/13/19 10:00 Last Admin: 09/13/19 10:54 Dose: Not Given Documented by: Potassium Chloride/Sodium Chloride (Normal Saline With 40 Meq Kcl) 1,000 mls @ 150 mls/hr IV ONETIME ONE Stop: 09/16/19 14:42 Last Admin: 09/16/19 08:35 Dose: 150 mls/hr Documented by: Insulin Aspart (Novolog) 0 unit SUBCUT TIDAC [facility]; Protocol Last Admin: 09/16/19 12:23 Dose: Not Given Documented by: Insulin Aspart (Novolog) 5 unit SUBCUT NOW STA Stop: 09/14/19 11:23 Last Admin: 09/14/19 11:58 Dose: Not Given Documented by: Insulin Aspart (Novolog) 10 unit SUBCUT NOW STA Stop: 09/14/19 22:34 Last Admin: 09/14/19 22:49 Dose: 10 units Documented by: Insulin Aspart (Novolog) 5 unit SUBCUT TIDAC [facility] Last Admin: 09/16/19 12:23 Dose: Not Given Documented by: Insulin Aspart (Novolog) 8 unit SUBCUT TIDAC [facility] Last Admin: 09/16/19 12:47 Dose: 8 unit Documented by: Insulin Glargine (Lantus Solostar) 10 units SUBCUT DAILY@1800 RALPH Last Admin: 09/13/19 18:11 Dose: 10 units Documented by: Insulin Glargine (Lantus Solostar) 12 units SUBCUT DAILY@1800 RALPH Last Admin: 09/14/19 18:35 Dose: 12 units Documented by: Insulin Glargine (Lantus Solostar) 8 units SUBCUT ONETIME ONE Stop: 09/14/19 23:31 Last Admin: 09/14/19 23:30 Dose: 8 units Documented by: Insulin Glargine (Lantus Solostar) 22 units SUBCUT DAILY@1800 RALPH Last Admin: 09/15/19 21:32 Dose: 22 units Documented by: Insulin Glargine (Lantus Solostar) 25 units SUBCUT DAILY@1800 RALPH Last Admin: 09/17/19 08:57 Dose: Not Given Documented by: Insulin Human Regular (Novolin R) 7 unit SUBCUT ASDIRECTED [facility]; Protocol Last Admin: 09/12/19 18:15 Dose: Not Given Documented by: Insulin Human Regular (Novolin R) 1 - 4 unit SUBCUT ASDIRECTED [facility]; Protocol Insulin Human Regular (Novolin R) 1 - 4 unit SUBCUT QIDACANDBED [facility]; Protocol Last Admin: 09/14/19 07:37 Dose: 2 units Documented by: Iopamidol (Isovue Multipack-370 (76%)) 100 ml IVPUSH ONETIME STA Stop: 09/12/19 16:46 Last Admin: 09/12/19 16:45 Dose: 100 ml Documented by: Ondansetron HCl (Zofran) 4 mg IVPUSH ONETIME ONE Stop: 09/12/19 19:08 Last Admin: 09/12/19 19:16 Dose: 4 mg Documented by: Ondansetron HCl (Zofran) Confirm Administered Dose 4 mg .ROUTE .STK-MED ONE Stop: 09/12/19 19:09 Last Admin: 09/12/19 19:20 Dose: Not Given Documented by: Potassium Chloride (Klor-Con M20) 40 meq PO ONETIME ONE Stop: 09/12/19 22:33 Last Admin: 09/12/19 22:43 Dose: 40 meq Documented by: Potassium Chloride (Klor-Con M20) 40 meq PO ONETIME ONE Stop: 09/13/19 08:29 Last Admin: 09/13/19 09:05 Dose: 40 meq Documented by: Potassium Chloride (Potassium Chloride Solution) 40 meq PO ONETIME ONE Stop: 09/13/19 10:04 Last Admin: 09/13/19 10:55 Dose: Not Given Documented by: Potassium Chloride (Klor-Con M20) 40 meq PO ONETIME ONE Stop: 09/13/19 11:01 Last Admin: 09/13/19 11:00 Dose: 40 meq Documented by: Potassium Chloride (Klor-Con M20) 40 meq PO ONETIME ONE Stop: 09/13/19 17:55 Last Admin: 09/13/19 18:10 Dose: 40 meq Documented by: Potassium Chloride (Klor-Con M20) 40 meq PO ONETIME ONE Stop: 09/13/19 21:54 Last Admin: 09/13/19 22:43 Dose: 40 meq Documented by: Potassium Chloride (Klor-Con M20) 40 meq PO ONETIME ONE Stop: 09/14/19 06:14 Last Admin: 09/14/19 06:44 Dose: 40 meq Documented by: Potassium Chloride (Klor-Con M20) 40 meq PO ONETIME ONE Stop: 09/15/19 10:31 Last Admin: 09/15/19 11:00 Dose: 40 meq Documented by: Potassium Chloride (Klor-Con M20) 40 meq PO ONETIME ONE Stop: 09/16/19 08:04 Last Admin: 09/16/19 08:34 Dose: 40 meq Documented by: Potassium Chloride (Klor-Con M20) 40 meq PO ONETIME ONE Stop: 09/16/19 16:51 Last Admin: 09/16/19 17:14 Dose: 40 meq Documented by: Sodium Bicarbonate (Sodium Bicarbonate 4.2%) 5 meq IVPUSH ONETIME ONE Stop: 09/12/19 17:31 Last Admin: 09/12/19 17:37 Dose: 5 meq Documented by: Sodium Phosphate (Neutra-Phos) 250 mg PO QID RALPH Last Admin: 09/16/19 06:25 Dose: 250 mg Documented by:
[2019-09-17] MEDS: Acetaminophen 325 MG Tab PO PRN (09:14)
[2019-09-17] MEDS: Insulin Aspart 100 Units/ML 3 ML Pen SUBCUT SCH ×2 (09:15)
[2019-09-17 11:47] VITALS: BP 106/70; PULSE 20
== END 2019-09-17 11:14 | disposition home or self-care (01) | DRG 639 ==
LOC: MW.ED 15:05 → MW.ICU 18:25 → MW.MS 09-14 15:12
PROVIDERS: ADMIT Internal Medicine; ATTEND Internal Medicine
DX: E11.10 Type 2 diabetes mellitus with ketoacidosis without coma (principal); S32.038A Other fracture of third lumbar vertebra, initial encounter for closed fracture; W19.XXXA Unspecified fall, initial encounter; R29.6 Repeated falls; R06.00 Dyspnea, unspecified; M06.9 Rheumatoid arthritis, unspecified; E87.6 Hypokalemia; Z91.048 Other nonmedicinal substance allergy status; R51 Headache; Z91.09 Other allergy status, other than to drugs and biological substances; Z87.891 Personal history of nicotine dependence; E11.65 Type 2 diabetes mellitus with hyperglycemia; Z20.828 Contact with and (suspected) exposure to other viral communicable diseases
CPT/HCPCS: 36415; 36600; 70450; 71275; 72125; 74177; 80053; 81001; 82009; 82803; 82962 ×2; 83735; 84100; 84145; 84443; 84484; 84703; 85025; 85610; 87040 ×2; 87635; 93005; 96361; 96365; 96375; 99285; J1815; J3480 ×2; J7030 ×2; J7050; Q9967; 80048; 82306; 83036; 83605; 84132; A9270-GY; J2405; J3490; U0002

== ENCOUNTER 2021-07-26 16:44 | Emergency (ER) | payer OTHER ==
[2021-07-26 17:04] VITALS: BP 135/85; PULSE 121
== END 2021-07-26 19:20 | disposition home or self-care (01) ==
LOC: MW.ED 16:44
DX: U07.1 COVID-19 (principal); E10.65 Type 1 diabetes mellitus with hyperglycemia; Z79.899 Other long term (current) drug therapy; Z79.4 Long term (current) use of insulin; Z91.048 Other nonmedicinal substance allergy status
CPT/HCPCS: 81025; 99283; 99284

== ENCOUNTER 2021-08-14 08:09 | Emergency (ER) | payer OTHER ==
[2021-08-14] MEDS ORDERED: Lactated Ringers 1,000 ML IV STA (08:25)
[2021-08-14 09:23] LABS: CARBON DIOXIDE,CO2 23.1 mmol/L (21.0-32.0); POTASSIUM,K 3.5 mmol/L (3.5-5.1)
[2021-08-14] MEDS ORDERED: Ketorolac 30 MG/ML SDV IVPUSH ONE (09:38)
[2021-08-14] MEDS ORDERED: Iopamidol 755 MG/ML 500 ML Multipack Bottle IVPUSH STA (10:07)
[2021-08-14] MEDS ORDERED: Sulfamethoxazole/Trimethoprim 800-160 MG Tab PO ONE (11:57)
[2021-08-15 08:15] VITALS: BP 134/72; PULSE 86
[2021-08-16 11:07] LABS: C.TRACHOMATIS BY TMA Negative (Negative); N.GONORRHOEAE BY TMA Negative (Negative)
== END 2021-08-14 12:55 | disposition home or self-care (01) ==
LOC: MW.ED 08:09
DX: L03.316 Cellulitis of umbilicus (principal); L02.216 Cutaneous abscess of umbilicus; N89.8 Other specified noninflammatory disorders of vagina; E10.9 Type 1 diabetes mellitus without complications; Z91.048 Other nonmedicinal substance allergy status
CPT/HCPCS: 36415; 74177; 76830; 80053; 82947; 83605; 85025; 85610; 87040; 87480; 87491; 87510; 87591; 87660; 96361; 96374; 99284; A9270; J1885; J7120; Q9967

== ENCOUNTER 2021-10-22 09:06 | Emergency (ER) | payer OTHER ==
[2021-10-22] MEDS ORDERED: Albuterol/Ipratropium 3.0-0.5 MG/3 ML Neb Soln NEB ONE (09:15)
[2021-10-22 09:19] VITALS: BP 138/102
[2021-10-22 10:10] LABS: CORONAVIRUS COVID-19 NAA NEGATIVE (NEGATIVE); INFLUENZA A NAA NEGATIVE (NEGATIVE); INFLUENZA B NAA NEGATIVE (NEGATIVE)
[2021-10-22 10:25] VITALS: PULSE 94
== END 2021-10-22 10:24 | disposition home or self-care (01) ==
LOC: MW.ED 09:06
DX: J40 Bronchitis, not specified as acute or chronic (principal); Z91.048 Other nonmedicinal substance allergy status; Z20.822 Contact with and (suspected) exposure to COVID-19
CPT/HCPCS: 0240U; 71045; 82947; 99284; J7620-GY